=== PATIENT | female | born 1940 | race Caucasian/White ===

== ENCOUNTER 2020-04-04 07:38 | Outpatient (REF) | payer MEDICARE, SELFPAY ==
[2020-04-04 11:31] LABS: Hematocrit 39.6 % (37-47); Hemoglobin 12.9 g/dl (12.0-16.0); Mean Corpuscular HGB Conc 32.6 g/dl (31.0-35.0); Mean Corpuscular Hemoglobin 29.7 pg (27.0-33.0); Mean Corpuscular Volume 91.2 fL (80-98); Mean Platelet Volume 10.9 fL (9.4-12.3); Platelet Count 279 X10*3/uL (160-400); Red Blood Count 4.34 X10*6/uL (4.20-5.50); White Blood Count 6.2 X10*3/uL (4.8-10.8)
[2020-04-04 12:00] LABS: Alanine Aminotransferase 17 U/L (0-31); Albumin Level 4.3 g/dL (3.5-5.0); Alkaline Phosphatase 79 U/L (39-117); Anion Gap 13 (12-20); Aspartate Amino Transferase 21 U/L (5-31); Bilirubin Total 0.7 mg/dL (0.0-1.0); Blood Urea Nitrogen 18 mg/dL (9-16); Calcium 8.9 mg/dL (8.4-10.2); Carbon Dioxide 26 mmol/L (22-29); Chloride 102 mmol/L (96-108); Cholesterol 187 mg/dL; Estimated Glomerular Filt Rate > 60; Glucose Fasting 79 mg/dL (60-99); HDL Cholesterol 55 mg/dL; LDL Cholesterol Calculated 118 mg/dl; Sodium 137 mmol/L (135-145); Total Protein 6.7 g/dL (6.5-8.0); Triglycerides 72 mg/dL
== END 2020-04-04 07:39 | disposition home or self-care (01) ==
LOC: HO.HMGCLDS 07:38
PROVIDERS: PCP Internal Medicine; Visit Provider Internal Medicine
DX: E78.5 Hyperlipidemia, unspecified (principal); R53.83 Other fatigue
CPT/HCPCS: 36415; 80053; 80061; 85027

== ENCOUNTER 2020-09-20 07:20 | Outpatient (REF) | payer MEDICARE, SELFPAY ==
--- NOTE | ~2020-09-20 | MR_ITS ---
EXAMINATION: MR SHOULDER WITHOUT CONTRAST, RIGHT CLINICAL INFORMATION: Pain in rt shoulder, r/o tear decreased range of motion COMPARISON: None TECHNIQUE: MRI of the shoulder without contrast was performed on a high-field scanner. FINDINGS: ROTATOR CUFF: A full-thickness tear of the supraspinatus and infraspinatus tendons measures 4.5 cm AP, measuring around the humeral head in the sagittal dimension. There is moderate to severe subscapularis tendinosis with undersurface fraying. Ill-defined partial tearing of the undersurface fibers of the subscapularis tendon is possible, though not discretely measurable. The torn margins of the supraspinatus and infraspinatus tendon are retracted medially to the level of the glenoid fossa (4.6 cm). There is moderate supraspinatus and infraspinatus muscle atrophy with grade 2 fatty replacement. Mild grade 1 fatty replacement and atrophy of the teres minor muscle. BICEPS: The biceps tendon is chronically torn at the labral anchor and distally retracted. Fibers within the bicipital groove are likely tethered proximally by attachments to the joint capsule. CORACOACROMIAL ARCH: The undersurface of the acromion is curved with prominent anterolateral subacromial spurring. Moderate acromioclavicular osteoarthritis. Fluid from the glenohumeral joint extending into the subacromial-subdeltoid bursa. LABRUM/CAPSULE: Superior labrum is blunted and degenerated at the site of the biceps tendon avulsion. There is focal fraying of the labrum posterosuperiorly with underlying subchondral marrow edema signal. GLENOHUMERAL JOINT/MARROW: There is chondral thinning at the glenoid posterosuperiorly with irregularity and underlying articular cortex and underlying marrow edema. Mild focal chondral fissuring at the humeral head superomedially. Cortical irregularity at the posterosuperior aspect of the humeral head is noted over an area measuring 1.5 x 0.8 cm and may correspond to a shallow chronic Hill-Sachs deformity or chronic remodeling from posterosuperior (internal) impingement. There is a moderate-sized joint effusion with intra-articular debris. No large loose bodies are identified. MR/MR shoulder RT wo con IMPRESSION: 1. Large complete, full-thickness tears of the supraspinatus and infraspinatus tendons with retraction to the level of the glenoid fossa and moderate muscle atrophy. 2. Severe subscapularis tendinosis with undersurface fraying. 3. Chronic disruption of the biceps tendon and labral anchor within the retraction. 4. Moderate acromioclavicular osteoarthritis and anterior subacromial spurring. 5. Mild glenohumeral osteoarthritis with labral fraying and degeneration posterosuperiorly.
== END 2020-09-20 07:21 | disposition home or self-care (01) ==
LOC: HO.MRI 07:20
PROVIDERS: Visit Provider Internal Medicine
DX: M25.511 Pain in right shoulder (principal)
CPT/HCPCS: 73221

== ENCOUNTER → 2020-09-27 10:58 | Outpatient (BNVA) | payer MEDICARE, SELFPAY | PROVIDERS: PCP Internal Medicine; Visit Provider Orthopaedic Surgery | DX: M17.11 Unilateral primary osteoarthritis, right knee (principal); M12.811 Other specific arthropathies, not elsewhere classified, right shoulder | CPT/HCPCS: 99212 ==

== ENCOUNTER → 2020-12-13 10:08 | Outpatient (BNVA) | payer MEDICARE, SELFPAY | PROVIDERS: Visit Provider Orthopaedic Surgery | DX: Z01.812 Encounter for preprocedural laboratory examination (principal); M17.11 Unilateral primary osteoarthritis, right knee; Z01.810 Encounter for preprocedural cardiovascular examination ==

== ENCOUNTER 2020-12-24 14:05 | Outpatient (RCR) | payer MEDICARE, SELFPAY ==
--- NOTE | 2020-12-24 14:56 | MHC.PT.EP ---
[facility] [place] Office [place] Office [place] Office [address] [phone] F: [phone] F: [phone] F: [phone] F: [phone] Physical Therapy Plan of Care Date of Evaluation: Date of Surgery: N/A Diagnosis: Pre op for R knee OA - TKA on 01/15 Assessment: Patient is a 80 year old R handed female who presents with s/s consistent with OA pre-op for R TKA. 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 Patient past medical history includes post-polio syndrome, OA, fracture R patella, hip replacement. Current impairments include pain, ROM, strength, safety, independence, activity tolerance and functional mobility. Functional limitations include decreased ability to walk, stand, transfer, negotiate stairs, and perform weight bearing activities.. Patient is motivated with good rehab potential. Skilled PT will involved issuing HEP for pre-op performance then d/c to HEP. Frequency and Duration: The patient will be seen d/c to HEP Short Term Goals: I with HEP - 1 visit Snf Goals: n/a Treatment Plan: Modalities to reduce pain, spasms and effusion. Manual therapy to restore motion and function. Therapeutic exercise to improve strength and flexibility. Neuromuscular re-education for posture and balance. Therapeutic activities to return to functional activities of daily living. Electronically signed by: Onesimo Garcia, PT Please sign and return to therapist. Thank you for your referral.
--- NOTE | 2021-03-20 09:48 | MHC.PT.DC ---
[facility] [place] Office [place] Office [place] Office [address] Dougie Rowe 140 [facility] [phone] F: [phone] F: [phone] F: [phone] F: [phone] Physical Therapy Discharge Report Diagnosis: Pre op for R knee OA - TKA on 01/15 Date of Surgery: N/A Date of Evaluation: 12/24/20 Date of Discharge: 12/24/20 Treatments to Date: 1 Cancellations to Date: 0 No Shows to Date: Discharge Status: Independent with HEP Discharge Summary: Patient is a 80 year old R handed female who presents with s/s consistent with OA pre-op for R TKA. 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 Patient past medical history includes post-polio syndrome, OA, fracture R patella, hip replacement. Current impairments include pain, ROM, strength, safety, independence, activity tolerance and functional mobility. Functional limitations include decreased ability to walk, stand, transfer, negotiate stairs, and perform weight bearing activities.. Patient is motivated with good rehab potential. Skilled PT will involved issuing HEP for pre-op performance then d/c to HEP. Electronically signed by: Onesimo Garcia, PT Please sign and return to therapist. Thank you for your referral.
== END 2021-10-02 09:46 | disposition home or self-care (01) ==
LOC: HO.PTCHIC 14:05
PROVIDERS: PCP Internal Medicine; Visit Provider Orthopaedic Surgery
DX: M17.11 Unilateral primary osteoarthritis, right knee (principal)
CPT/HCPCS: 97110; 97162

== ENCOUNTER → 2021-01-10 10:46 | Outpatient (BNVA) | payer MEDICARE, SELFPAY | PROVIDERS: PCP Internal Medicine; Visit Provider Physician Assistant | DX: M17.11 Unilateral primary osteoarthritis, right knee (principal) | CPT/HCPCS: 99212 ==

== ENCOUNTER 2021-01-15 09:15 | Inpatient (IN) | payer MEDICARE, SELFPAY ==
[2021-01-01 11:58] VITALS: BP 133/67; PULSE 58; RESP 16; O2SAT 100; BMI 20.7
--- NOTE | 2021-01-01 12:30 | HO.ANESPROP2 ---
Documented by User: Carina Barkley NP 01/14/21 08:34 HPI - Anesthesia Eval Consult details Narrative: 80yo F for Right Total Knee Replacement Low Na with preop labs. Repeat DOS. PCP [facility] Past Medical History Medical History ADHD Arthritis Carpal tunnel syndrome of left wrist GERD (gastroesophageal reflux disease) HTN (hypertension) Low back pain Melanoma Rotator cuff tear Family History Family history of problems with anesthesia: No Surgical History Surgical History History of appendectomy History of carpal tunnel release History of total left hip replacement History of Problems with Anesthesia: No Social History Social History Are you a primary urgent care nurse practitioner to a significant other at home: No Do you presently have visiting nurse or other home services: No Patient Tobacco Use Status: Never used Tobacco Use of substances other than those prescribed or required for medical reasons: No Have you been hit, kicked, punched, or otherwise hurt by someone within the past year? If so, by whom?: No Are you DNR?: No Advance Directives: No Advance Directives Information Provided: No Advance Directives on File: No Recently lost weight without trying: No Narrative Narrative: No recent illness. No CP/SOB with regular activity Meds Allergies Allergy/AdvReac Type Severity Reaction Status Date / Time Sulfa (Sulfonamide AdvReac Nausea and Verified 01/15/21 08:50 Antibiotics) Vomiting Home Medications Medication Instructions Recorded Confirmed Last Taken Type lisinopril 10 1 tab PO DAILY 01/01/21 01/01/21 01/15/21 05:30 History mg-hydrochlorothiazide 12.5 mg tablet methylphenidate HCl 10 mg tablet 5 mg PO DAILY 01/01/21 01/01/21 Unknown History omeprazole 20 mg capsule,delayed 20 mg PO DAILY 01/01/21 01/01/21 Unknown History release Exam Exam Date and Time: January 01, 2021 1230 Height,Weight and Vital Signs: Height 4 ft 11 in Weight 46.7 kg Last Vital Signs Pulse 58 01/01/21 11:58 Resp 16 01/01/21 11:58 BP 133/67 01/01/21 11:58 Pulse Ox 100 01/01/21 11:58 Pertinent Lab Results Pertinent Lab Results: Lab Results 01/01/21 01/01/21 01/01/21 Range/Units 12:30 13:25 13:25 WBC 8.8 (4.8-10.8) X10*3/uL RBC 4.19 L (4.20-5.50) X10*6/uL Hgb 12.5 (12.0-16.0) g/dl Hct 37.9 (37-47) % MCV 90.5 (80-98) fL MCH 29.8 (27.0-33.0) pg MCHC 33.0 (31.0-35.0) g/dl RDW 13.4 (11.0-16.0) % Plt Count 248 (160-400) X10*3/uL MPV 10.4 (9.4-12.3) fL Immature Gran % (Auto) 0.3 (0.0-0.4) % Neut % (Auto) 67.2 (45-73) % Lymph % (Auto) 18.8 L (20-40) % Boone % (Auto) 11.2 H (2-11) % Eos % (Auto) 2.0 (0-4) % Baso % (Auto) 0.5 (0-2) % Lymph # (Auto) 1.7 (1.2-4.9) X10*3/uL Boone # (Auto) 1.0 (0.1-1.2) X10*3/uL Eos # (Auto) 0.2 (0.0-0.4) X10*3/uL Baso # (Auto) 0.0 (0.0-0.2) X10*3/uL Abs Immat Gran (auto) 0.03 (0.00-0.03) X10*3/uL Absolute Neuts (auto) 5.9 (2.0-8.3) X10*3/uL Absolute Nucleated RBC 0.000 (0.0-0.012) X10*3/uL Nucleated RBC % (auto) 0.0 (0.0-0.2) /100WBC Sodium 132 L (135-145) mmol/L Potassium 4.4 (3.3-5.1) mmol/L Chloride 100 (96-108) mmol/L Carbon Dioxide 22 (22-29) mmol/L Anion Gap 14 (12-20) BUN 15 (9-16) mg/dL Creatinine (0.5-1.4) mg/dL Estim Creat Clear Calc Estimated GFR Nasal Screen MRSA (PCR) NEGATIVE (Negative) Nasal S. aureus Screen NEGATIVE (Negative) Nasal MRSA/S.aureus Interp SEE NOTE Blood Type Antibody Screen 01/01/21 01/01/21 Range/Units 13:25 13:25 WBC (4.8-10.8) X10*3/uL RBC (4.20-5.50) X10*6/uL Hgb (12.0-16.0) g/dl Hct (37-47) % MCV (80-98) fL MCH (27.0-33.0) pg MCHC (31.0-35.0) g/dl RDW (11.0-16.0) % Plt Count (160-400) X10*3/uL MPV (9.4-12.3) fL Immature Gran % (Auto) (0.0-0.4) % Neut % (Auto) (45-73) % Lymph % (Auto) (20-40) % Boone % (Auto) (2-11) % Eos % (Auto) (0-4) % Baso % (Auto) (0-2) % Lymph # (Auto) (1.2-4.9) X10*3/uL Boone # (Auto) (0.1-1.2) X10*3/uL Eos # (Auto) (0.0-0.4) X10*3/uL Baso # (Auto) (0.0-0.2) X10*3/uL Abs Immat Gran (auto) (0.00-0.03) X10*3/uL Absolute Neuts (auto) (2.0-8.3) X10*3/uL Absolute Nucleated RBC (0.0-0.012) X10*3/uL Nucleated RBC % (auto) (0.0-0.2) /100WBC Sodium (135-145) mmol/L Potassium (3.3-5.1) mmol/L Chloride (96-108) mmol/L Carbon Dioxide (22-29) mmol/L Anion Gap (12-20) BUN (9-16) mg/dL Creatinine 0.67 (0.5-1.4) mg/dL Estim Creat Clear Calc 46.4 Estimated GFR > 60 Nasal Screen MRSA (PCR) (Negative) Nasal S. aureus Screen (Negative) Nasal MRSA/S.aureus Interp Blood Type A Negative Antibody Screen NEGATIVE Narrative Narrative: EKG 01/01/21 Vent. Rate : 059 BPM ? ? Atrial Rate : 059 BPM ?? P-R Int : 160 ms? QRS Dur : 086 ms ? ? QT Int : 418 ms ? ? ? P-R-T Axes : 040 -16 057 degrees ?? QTc Int : 413 ms ? Sinus bradycardia Nonspecific ST abnormality Abnormal ECG When compared with ECG of 19-SEP-2001 18:53, Vent. rate has decreased BY? 30 BPM Nonspecific T wave abnormality no longer evident in Anterolateral leads Airway Mallampati Class: II TM Dist: >3cm Neck ROM: Full Denture: Upper and Lower Heart: RRR Lungs: CTAB Assessment and Plan Assessment Anesthesia Assessment: Anesthesia Plan Discussed and PAT Visit Final Anesthetic Review Family History of Problems with Anesthesia: No History of Problems with Anesthesia: No Documented by User: Amee Robb MD 01/15/21 09:35 [facility] Past Medical History Medical History ADHD Arthritis Carpal tunnel syndrome of left wrist GERD (gastroesophageal reflux disease) HTN (hypertension) Low back pain Melanoma Rotator cuff tear Surgical History Surgical History History of appendectomy History of carpal tunnel release History of total left hip replacement Social History Social History Are you a primary urgent care nurse practitioner to a significant other at home: No Do you presently have visiting nurse or other home services: No Patient Tobacco Use Status: Never used Tobacco Use of substances other than those prescribed or required for medical reasons: No Have you been hit, kicked, punched, or otherwise hurt by someone within the past year? If so, by whom?: No Are you DNR?: No Advance Directives: No Advance Directives Information Provided: No Advance Directives on File: No Recently lost weight without trying: No Meds Allergies Allergy/AdvReac Type Severity Reaction Status Date / Time Sulfa (Sulfonamide AdvReac Nausea and Verified 01/15/21 08:50 Antibiotics) Vomiting Home Medications Medication Instructions Recorded Confirmed Last Taken Type lisinopril 10 1 tab PO DAILY 01/01/21 01/01/21 01/15/21 05:30 History mg-hydrochlorothiazide 12.5 mg tablet methylphenidate HCl 10 mg tablet 5 mg PO DAILY 01/01/21 01/01/21 Unknown History omeprazole 20 mg capsule,delayed 20 mg PO DAILY 01/01/21 01/01/21 Unknown History release Assessment and Plan Assessment Anesthesia Assessment: Chart Reviewed Final Anesthetic Review NPO: Yes ASA Class: II Final Preanesthetic Review: No Changes in Pt Med Stat, Meds/Allgs Chart Reviewed, Consent Obtained/Reviewed and Anes Risks/Benef Reviewed Patient Risk: Low Procedure Risk: Intermediate Assessment/Block/Sedation in : Assess/Block/Sedation- Anesthetic Plan Anesthetic Plan: Spinal and Regional Block Disposition: Standard PACU
--- NOTE | 2021-01-01 13:18 | ECG_ITS ---
Test Reason : PREOP Blood Pressure : / mmHG Vent. Rate : 059 BPM Atrial Rate : 059 BPM P-R Int : 160 ms QRS Dur : 086 ms QT Int : 418 ms P-R-T Axes : 040 -16 057 degrees QTc Int : 413 ms Sinus bradycardia Nonspecific ST abnormality Abnormal ECG When compared with ECG of 19-SEP-2001 18:53, Vent. rate has decreased BY 30 BPM Nonspecific T wave abnormality no longer evident in Anterolateral leads Referred By: Herman Huynh Electronically Signed By:Felix Bruner
[2021-01-01 14:30] LABS: MANUAL DIFF FLAG NO
[2021-01-01 14:42] LABS: Basophils Percent Auto 0.5 % (0-2); Eosinophils Absolute Auto 0.2 X10*3/uL (0.0-0.4); Hematocrit 37.9 % (37-47); Hemoglobin 12.5 g/dl (12.0-16.0); Imm Gran Abs Auto 0.03 X10*3/uL (0.00-0.03); Imm Gran Pct Auto 0.3 % (0.0-0.4); Lymphocytes Absolute Auto 1.7 X10*3/uL (1.2-4.9); Lymphocytes Percent Auto 18.8 % (20-40); Mean Corpuscular Hemoglobin 29.8 pg (27.0-33.0); Mean Corpuscular Volume 90.5 fL (80-98); Mean Platelet Volume 10.4 fL (9.4-12.3); Monocytes Percent Auto 11.2 % (2-11); Neutrophils Absolute Auto 5.9 X10*3/uL (2.0-8.3); Neutrophils Percent Auto 67.2 % (45-73); Platelet Count 248 X10*3/uL (160-400); Red Blood Count 4.19 X10*6/uL (4.20-5.50); Red Cell Distribution Width 13.4 % (11.0-16.0); White Blood Count 8.8 X10*3/uL (4.8-10.8)
[2021-01-01 15:10] LABS: Creatinine Clr Calc Pharmacy 46.4; Estimated Glomerular Filt Rate > 60
[2021-01-01 15:11] LABS: Anion Gap 14 (12-20); Blood Urea Nitrogen 15 mg/dL (9-16); Carbon Dioxide 22 mmol/L (22-29); Chloride 100 mmol/L (96-108); Potassium 4.4 mmol/L (3.3-5.1); Sodium 132 mmol/L (135-145)
[2021-01-01 15:13] LABS: MRSA Nasal PCR NEGATIVE (Negative); SA Nasal PCR NEGATIVE (Negative)
[2021-01-15] VITALS (14 sets, daily range): BP systolic 115–168; BP diastolic 54–82; PULSE 48–74; RESP 14–18; TEMP 36.3–36.7; O2SAT 97–100
--- NOTE | ~2021-01-15 | XR_ITS ---
EXAMINATION: XR KNEE, RIGHT CLINICAL INFORMATION: Status post right knee total arthroplasty. COMPARISON: None TECHNIQUE: AP and lateral views of the right knee. FINDINGS: Prosthetic components of the right total knee arthroplasty are appropriately aligned. No periprosthetic fracture. Gas from recent surgery is present in the joint and surrounding soft tissues. A joint effusion is present. XR/XR knee RT 2V IMPRESSION: Appropriate alignment of the right total knee arthroplasty.
[2021-01-15 09:31] LABS: Glucose Urine UA NEG (NEG); Leukocyte Esterase Urine 2+ (NEG); Nitrite Urine POS (NEG); Specific Gravity - Urine <= 1.005 (1.005-1.025); Urine Blood TRACE (NEG); Urine Ketones NEG (NEG); Urine Protein NEG (NEG-TRACE)
[2021-01-15 09:33] LABS: Appearance Urine CLEAR; Color Urine YELLOW
[2021-01-15 09:40] LABS: COVID-19 Test Negative (Negative); IDNOW Serial# 9DD0AD1C
[2021-01-15 09:44] LABS: Bacteria Urine 4+ /LPF; RBC Urine 0-2 /HPF (0); Squamous Epithelial Cell Urine 3+ /LPF
[2021-01-15] MEDS: Lactated Ringers 1,000 ML 100 ML IVCONT (10:00)
--- NOTE | 2021-01-15 10:17 | MHC.SHP ---
Pre-Procedural Eval Section A Date of Service: 01/15/21 The patient is an INPATIENT: No Changes since office visit: Yes Patient answered all questions; No Cold of Flu in the past 2 weeks, No New Medical Problems and No Changes in Medication The History & Physical has been completed within 30 days and I have reviewed it.: Yes Section B Chief Complaint: Right total knee arthroplasty Allergies: Allergies Allergy/AdvReac Type Severity Reaction Status Date / Time Sulfa (Sulfonamide AdvReac Nausea and Verified 01/15/21 08:50 Antibiotics) Vomiting Plan I have reviewed the history and physical and performed a pertinent physical examination on my patient. No changes have occurred unless specified.
[2021-01-15 10:29] LABS: Anion Gap 15 (12-20); Carbon Dioxide 21 mmol/L (22-29); Chloride 108 mmol/L (96-108); Potassium 4.5 mmol/L (3.3-5.1); Sodium 139 mmol/L (135-145)
--- NOTE | 2021-01-15 10:31 | PC.NURSE ---
Dr Huynh informed of lab work. Dr Huynh spoke with pt she is asymptomatic. no intervention at this time. pt will be receving cefazolin in OR for the surgery.
--- NOTE | 2021-01-15 12:42 | PM.OP ---
Brief Operative Note Date of Service: 01/15/21 Pre-op diagnosis: right knee OA Post-op diagnosis: same Procedure: right TKA Implants: Mitch triatahlon 3C2/29a/10PS cemented Surgeon: Herman Huynh MD Anesthesia: GETA and regional Was an Coordinator Integrated Marketing used for this Procedure?: Yes Coordinator Integrated Marketing: Andrew Boyd Estimated blood loss (mL): 200 IV fluids (mL): 1,000 Pathology: other (bone) Condition: stable Disposition: PACU
--- NOTE | 2021-01-15 12:46 | W.PM.OPN ---
Operative Note Operative Note Date of Service: 01/15/21 Narrative: Pre-op diagnosis: right knee OA Post-op diagnosis: same Procedure: right TKA Implants: Hubertus triatahlon 3C2/29a/10PS cemented Surgeon: Herman Huynh MD Anesthesia: GETA and regional Was an Mechanical Supervisor used for this Procedure?: Yes Mechanical Supervisor: Andrew Boyd Estimated blood loss (mL): 200 IV fluids (mL): 1,000 Pathology: other (bone) Condition: stable Disposition: PACU Procedure in detail: Patient was brought to the operating room and prepped and draped in standard sterile fashion. A time-out was called to identify proper site proper procedure proper surgeon IV antibiotics were administered. 1 g of IV tranexamic acid was also administered. I began by making a midline incision to the retinaculum and performed a medial parapatellar arthrotomy. The patella was translated laterally and the knee was flexed up. There was complete eburnation of the femur and the lateral tibial compartment. I performed a small medial peel and resected the infrapatellar fat pad. Alexander's line was then used to drill my intramedullary femoral guide and my distal femur cut was made in 5 degrees of valgus. I then measured a # _3__ femur and placed my cutting guide and made my anterior posterior and chamfer cuts protecting the soft tissues at all times. Her bone quality was poor and the decision was made to place a PS knee and so a box cut was made tyhe the PCL sacrificed. Once I was satisfied with my cut I turned my attention to the tibia. I removed the meniscus and , using an external cutting guide, in line with the tibial crest and the third ray, I made my distal tibial cut ( 0 deg slope) while protecting the posterior soft tissues at all times. An extension block was used to confirm appropriate amount of bony resection. I then sized a #_2__ tibia and once I was satisfied that there was good tibial coverage I placed my trial and with the trial femur in place took the knee through range of motion. I was satisfied with the extension and flexion as well as the stability at 0, 30 and 90 degrees. I then turned my attention to the patella where I removed 1 cm from the undersurface of the patella and then trialed a ___29a___ patellar button. Again the knee was taken through range of motion I was satisdied with the tracking. I then returned to the femur and drilled my femoral lug holes and prepared the tibia. Femoral bone plug was then placed and the knee was irrigated copiously. I then cemented the patella, tibia and femur in standard fashion. I trialed different inserts until I selected a #__10__ insert. The final insert was placed and a 3 minutes iodine soak with local TXA was performed. The knee was then closed with a running Quill suture, a 3 0 Vicryl and toro on the skin. Patient was then placed in sterile dressing and brought to recovery room in stable condition there were no known complications.
[2021-01-15] MEDS: Dextrose 5 % and 0.45 % NaCl 1,000 ML 80 ML IVCONT (15:12)
[2021-01-15] MEDS: Docusate Sodium 100 MG CAPSULE PO (20:13)
[2021-01-15] MEDS: oxyCODONE HCl ER 10 MG TAB.ER.12H PO (20:13)
[2021-01-15] MEDS: Celecoxib 200 MG CAPSULE PO (20:13)
[2021-01-16] VITALS (9 sets, daily range): BP systolic 115–155; BP diastolic 63–82; PULSE 68–100; RESP 14–20; TEMP 36.4–37.2; O2SAT 96–100
[2021-01-16] MEDS: Dextrose 5 % and 0.45 % NaCl 1,000 ML 80 ML IVCONT ×2 (03:08→15:53)
[2021-01-16] MEDS: oxyCODONE HCl Immed Release 5 MG TABLET PO ×2 (07:56→15:52)
--- NOTE | 2021-01-16 08:02 | PM.PNORT ---
Subjective Subjective Date of Service: 01/16/21 Interval history: POD1 s/p RTKA. Patient is resting comfortably in bed. No overnight events. Pain is well managed. Physical Exam Vital Signs: Vital Signs: Last Vital Signs Temp 97.6 F 01/16/21 07:58 Pulse 78 01/16/21 07:58 Resp 17 01/16/21 07:58 BP 147/82 H 01/16/21 07:58 Pulse Ox 100 01/16/21 07:58 Body Mass Index 20.7 Const: General: cooperative, healthy appearing and no acute distress Resp: Effort & Inspection: normal respiratory effort and able to speak in complete sentences Cardio: Rate: regular rate Peripheral pulses: Peripheral pulses 2+ throughout GI: Palpation (GI): Soft to palpation Skin: Lesions: no lesions Rashes: no rashes Extrem: Other: Left knee no ecchymosis, redness or drainage. Aquacel dressing is intact. Block is still in effect. Procedures Date of Service Date of Service: 01/16/21 Progress Note: A&P Assessment and plan (1) S/P total knee arthroplasty: Status: Acute Assessment and Plan: Continue pain mgmnt Begin SAS for dvt ppx Continue PT for RT TKA Dispo planning-Pending PT eval, pain mgmnt (2) Osteoarthritis of right knee: Status: Acute Fall Risk Details Current Medications: Current Medications Generic Name Dose Route Start Last Admin Trade Name Freq PRN Reason Stop Dose Admin Acetaminophen 650 mg 01/15/21 13:48 Acetaminophen 325 Mg Tablet PO Q6H PRN Pain, Mild (Pain Scale 1-3) Aspirin 325 mg 01/16/21 11:00 Aspirin 325 Mg Tablet PO BID CARO Celecoxib 200 mg 01/15/21 21:00 01/15/21 20:13 Celecoxib 200 Mg Capsule PO 200 mg BID CARO Administration Docusate Sodium 100 mg 01/15/21 21:00 01/15/21 20:13 Docusate Sodium 100 Mg Capsule PO 100 mg BID CARO Administration Hydromorphone HCl 0.25 mg 01/15/21 13:48 Hydromorphone Hcl 0.5 Mg/0.5 Ml Syringe IVPUSH Q4H PRN Pain, Severe (Pain Scale 7-10) Protocol Dextrose/Sodium Chloride 1,000 mls @ 80 mls/hr 01/15/21 13:48 01/16/21 03:08 D51/2ns IVCONT 80 mls/hr .[id number] CARO Administration Naloxone HCl 0.2 mg 01/15/21 13:48 Naloxone Hcl 0.4 Mg/Ml Vial IVPUSH Q2M PRN Excessive sedation or RR < 8 Ondansetron HCl 4 mg 01/15/21 13:48 Ondansetron Hcl 4 Mg/2 Ml Vial IVPUSH Q8H PRN Nausea and Vomiting Oxycodone HCl 5 mg 01/15/21 13:48 01/16/21 07:56 Oxycodone Hcl Immed Release 5 Mg Tablet PO 5 mg Q4H PRN Administration Pain, Moderate (Pain Scale 4-6 Oxycodone HCl 10 mg 01/15/21 21:00 01/15/21 20:13 Oxycodone Hcl Er 10 Mg Tab.Er.12h PO 10 mg BID CARO Administration Sodium Chloride 3 ml 01/15/21 16:00 01/16/21 07:03 0.9 % Sodium Chloride Flush 3 Ml Syringe IVFLUSH Not Given QSHIFT CARO Time Spent With Patient Time: Total time spent is greater than 50% in coordination of care (as documented) at patient's floor/unit and/or counseling patient: Time with patient: less than 15 minutes Quality Stroke Does the patient have a stroke diagnosis?: No VTE Prior VTE?: No VTE Risk Level:: Surgical - very high VTE Device Contraindication: N/A - Device Ordered VTE Drug Contraindication: N/A - Med Ordered
[2021-01-16 08:21] LABS: Anion Gap 12 (12-20); Blood Urea Nitrogen 12 mg/dL (9-16); Calcium 8.6 mg/dL (8.4-10.2); Carbon Dioxide 22 mmol/L (22-29); Chloride 106 mmol/L (96-108); Estimated Glomerular Filt Rate > 60; Glucose Fasting 117 mg/dL (60-99); Potassium 4.1 mmol/L (3.3-5.1); Sodium 136 mmol/L (135-145)
[2021-01-16] MEDS: Celecoxib 200 MG CAPSULE PO ×2 (08:46→20:32)
[2021-01-16] MEDS: oxyCODONE HCl ER 10 MG TAB.ER.12H PO ×2 (08:46→20:32)
[2021-01-16] MEDS: Docusate Sodium 100 MG CAPSULE PO ×2 (08:46→20:32)
--- NOTE | 2021-01-16 09:12 | PM.IMCN ---
History of Present Illness Data of Consult Service Date: 01/16/21 Requesting physician: Herman Huynh Primary Care Provider: Nehemiah Whyte MD HPI 80 year old female with HTN, ADHD, GERD who underwent elective right knee arthroplasty, POD 1. H as no acute issues, doing well with mobility. Pain is reasobably controlled. Review of Systems Review of Systems: Gen: no fever Resp: no sob, no cough CV: no chest, no LUU, no leg edema GI: No n/v, no abd pain Neuro: No confusion MSK: some pain in the right knee Yes all other systems are reviewed and are negative FOR[facility]LY [facility] Medical History (Updated 01/16/21 @ 09:22 by Maurice Butler MD) ADHD Arthritis Carpal tunnel syndrome of left wrist GERD (gastroesophageal reflux disease) HTN (hypertension) Low back pain Melanoma Rotator cuff tear Pertinent family history: not pertinent Surgical History (Updated 01/16/21 @ 08:04 by Isabelle Jules PA-C) History of appendectomy History of carpal tunnel release History of total left hip replacement Social History Are you a primary hearing care practitioner to a significant other at home: No Do you presently have visiting nurse or other home services: No Patient Tobacco Use Status: Never used Tobacco Use of substances other than those prescribed or required for medical reasons: No Currently Displaying Signs/Symptoms of Drug Intoxication Withdrawal: No Have you been hit, kicked, punched, or otherwise hurt by someone within the past year? If so, by whom?: No Are you DNR?: No Advance Directives: No Advance Directives Information Provided: No Advance Directives on File: No Do you have thoughts of harming others: None Do you have a plan to hurt others: No Plan Recently lost weight without trying: No service: No Current occupational status: retired Meds Allergies Allergy/AdvReac Type Severity Reaction Status Date / Time Sulfa (Sulfonamide AdvReac Nausea and Verified 01/15/21 08:50 Antibiotics) Vomiting Active Medications: Current Medications Generic Name Dose Route Start Last Admin Trade Name Freq PRN Reason Stop Dose Admin Acetaminophen 650 mg 01/15/21 13:48 Acetaminophen 325 Mg Tablet PO Q6H PRN Pain, Mild (Pain Scale 1-3) Aspirin 325 mg 01/16/21 11:00 Aspirin 325 Mg Tablet PO BID CARO Celecoxib 200 mg 01/15/21 21:00 01/16/21 08:46 Celecoxib 200 Mg Capsule PO 200 mg BID CARO Administration Docusate Sodium 100 mg 01/15/21 21:00 01/16/21 08:46 Docusate Sodium 100 Mg Capsule PO 100 mg BID CARO Administration Hydromorphone HCl 0.25 mg 01/15/21 13:48 Hydromorphone Hcl 0.5 Mg/0.5 Ml Syringe IVPUSH Q4H PRN Pain, Severe (Pain Scale 7-10) Protocol Dextrose/Sodium Chloride 1,000 mls @ 80 mls/hr 01/15/21 13:48 01/16/21 03:08 D51/2ns IVCONT 80 mls/hr .[id number] CARO Administration Naloxone HCl 0.2 mg 01/15/21 13:48 Naloxone Hcl 0.4 Mg/Ml Vial IVPUSH Q2M PRN Excessive sedation or RR < 8 Ondansetron HCl 4 mg 01/15/21 13:48 Ondansetron Hcl 4 Mg/2 Ml Vial IVPUSH Q8H PRN Nausea and Vomiting Oxycodone HCl 5 mg 01/15/21 13:48 01/16/21 07:56 Oxycodone Hcl Immed Release 5 Mg Tablet PO 5 mg Q4H PRN Administration Pain, Moderate (Pain Scale 4-6 Oxycodone HCl 10 mg 01/15/21 21:00 01/16/21 08:46 Oxycodone Hcl Er 10 Mg Tab.Er.12h PO [address] [facility] Administration Sodium Chloride 3 ml 01/15/21 16:00 01/16/21 07:03 0.9 % Sodium Chloride Flush 3 Ml Syringe IVFLUSH Not Given QSHIFT [facility] Home Medications Medication Instructions Recorded Confirmed Last Taken Type lisinopril 10 1 tab PO DAILY 01/01/21 01/01/21 01/15/21 05:30 History mg-hydrochlorothiazide 12.5 mg tablet methylphenidate HCl 10 mg tablet 5 mg PO DAILY 01/01/21 01/01/21 Unknown History omeprazole 20 mg capsule,delayed 20 mg PO DAILY 01/01/21 01/01/21 Unknown History release Physical Exam Vital Signs and Narrative: Vital Signs: Last Vital Signs Temp 97.6 F 08/18/21 07:58 Pulse 78 01/16/21 08:46 Resp 17 01/16/21 07:58 BP 147/82 H 01/16/21 08:46 Pulse Ox 100 01/16/21 08:46 Body Mass Index 20.7 Constitutional Awake and Alert, No apparent distress HEEENT anicteric Neck Supple, No lymphadenopathy Cardiovascular RRR, No M/R/G, S1 S2, No S3 S4, No pedal edema Respiratory Lungs clear, No respiratory distress Gastrointestinal Non tender, Non-distended Skin No rash, right knee surgery dressing in place Neurological Alert & oriented x3 Psychological Appropriate affect Results Labs CBC and Chem 7: 01/16/21 06:35 01/16/21 06:35 Labs: Laboratory Results - last 24 hr 01/15/21 01/15/21 01/15/21 09:07 09:14 09:58 MCV MCH MCHC RDW Plt Count MPV Immature Gran % (Auto) Neut % (Auto) Lymph % (Auto) [place] % (Auto) Eos % (Auto) Baso % (Auto) Lymph # (Auto) [place] # (Auto) Eos # (Auto) Baso # (Auto) Abs Immat Gran (auto) Absolute Neuts (auto) Absolute Nucleated RBC Nucleated RBC % (auto) Smear Tech's Comments Anion Gap 15 Estim Creat Clear Calc Estimated GFR Fasting Glucose Calcium Urine Color YELLOW Urine Appearance CLEAR Urine pH 7.0 Ur Specific [place] <= 1.005 Urine Protein NEG Urine Glucose (UA) NEG Urine Ketones NEG Urine Blood TRACE Urine Nitrite POS H Ur Leukocyte Esterase 2+ H Urine RBC 0-2 Urine WBC 5-9 H Ur Squamous Epith Cells 3+ Urine Bacteria 4+ COVID-19 (TAMI) Negative COVID-19 Clin Com See Note 01/16/21 01/16/21 06:35 06:35 MCV 90.7 MCH 30.1 MCHC 33.1 RDW 13.8 Plt Count 236 MPV 10.8 Immature Gran % (Auto) 0.6 H Neut % (Auto) 73.0 Lymph % (Auto) 11.5 L [place] % (Auto) 14.6 H Eos % (Auto) 0.1 Baso % (Auto) 0.2 Lymph # (Auto) 1.5 [place] # (Auto) 1.8 H Eos # (Auto) 0.0 Baso # (Auto) 0.0 Abs Immat Gran (auto) 0.07 H Absolute Neuts (auto) 9.2 H Absolute Nucleated RBC 0.000 Nucleated RBC % (auto) 0.0 Smear Tech's Comments VERIFIED Anion Gap 12 Estim Creat Clear Calc 51.0 Estimated GFR > 60 Fasting Glucose 117 H D Calcium 8.6 Urine Color Urine Appearance Urine pH Ur Specific [place] Urine Protein Urine Glucose (UA) Urine Ketones Urine Blood Urine Nitrite Ur Leukocyte Esterase Urine RBC Urine WBC Ur Squamous Epith Cells Urine Bacteria COVID-19 (TAMI) COVID-19 Clin Com Imaging Radiologist's Impressions: Impressions Knee X-Ray 01/15/21 13:11 IMPRESSION: Appropriate alignment of the right total knee arthroplasty. Assessment and Plan (1) ADHD: Status: Acute (2) HTN (hypertension): Status: Acute (3) GERD (gastroesophageal reflux disease): Status: Acute (4) S/P total knee arthroplasty: Status: Acute (5) Osteoarthritis of right knee: Status: Acute 80/F with HTN, GERD, ADH s/p ritht TKR, doing wel 1/HTN--Continue HCTZ/Lisinopril 2/GERD--continue Prilosec 3/ADHD--Ritalin 4/s/p R TKR, management per ortho, including apropriately 5/slight leukocytosis--likely reactive, monitor 6/Slight anemia--monitor Sing off, please contact with new problems, or concerns. Thanks
--- NOTE | 2021-01-16 09:18 | MHC.CM.PN ---
pt lives in her home. she has a roomate also described as a tenant. 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 she is independent in her care . prior to surgery she did not use any AD c ambulation despite her bad knee. she does however have a walker at home. she says that her roomate can help her c any needs she may have. this will include a ride home at [place]. PT john recomends home pt via vna and pt requested [facility] for this, a ref. has been made to [facility]. dc plan is home c vna for home PT. cm to cont. to follow.
[2021-01-16] MEDS: Aspirin 325 MG TABLET PO ×2 (10:05→20:32)
--- NOTE | 2021-01-16 14:57 | HO.POSTANES ---
Post Anesthesia Evaluation Post Anesthesia Evaluation Vital Signs: Vital Signs Temp Pulse Resp BP Pulse Ox 01/16/21 13:36 75 148/78 H 99 01/16/21 11:34 97.9 F 75 18 148/78 H 99 01/16/21 08:46 78 147/82 H 100 01/16/21 07:58 97.6 F 78 17 147/82 H 100 01/16/21 07:20 98.6 F 70 20 115/64 99 01/16/21 03:24 97.5 F 68 14 131/79 97 Anesthesia: Spinal and Nerve Block Mental Status: Awake Pain Control: Satisfactory Nausea/Vomiting: None Hydration: Adequate Anesthesia-Related Issues: No Anes. Related Issues
[2021-01-17 03:48] VITALS: BP 141/77; PULSE 76; RESP 16; TEMP 36.7; O2SAT 100
[2021-01-17] MEDS: Dextrose 5 % and 0.45 % NaCl 1,000 ML 80 ML IVCONT (05:44)
[2021-01-17 07:14] LABS: Basophils Percent Auto 0.3 % (0-2); Eosinophils Absolute Auto 0.1 X10*3/uL (0.0-0.4); Eosinophils Percent Auto 0.9 % (0-4); Hematocrit 31.7 % (37-47); Hemoglobin 10.8 g/dl (12.0-16.0); Imm Gran Abs Auto 0.08 X10*3/uL (0.00-0.03); Imm Gran Pct Auto 0.7 % (0.0-0.4); Lymphocytes Absolute Auto 1.3 X10*3/uL (1.2-4.9); Lymphocytes Percent Auto 11.2 % (20-40); MANUAL DIFF FLAG SCAN; Mean Corpuscular HGB Conc 34.1 g/dl (31.0-35.0); Mean Corpuscular Hemoglobin 30.6 pg (27.0-33.0); Mean Corpuscular Volume 89.8 fL (80-98); Mean Platelet Volume 10.5 fL (9.4-12.3); Monocytes Absolute Auto 2.5 X10*3/uL (0.1-1.2); Monocytes Percent Auto 21.8 % (2-11); Neutrophils Absolute Auto 7.6 X10*3/uL (2.0-8.3); Neutrophils Percent Auto 65.1 % (45-73); Platelet Count 232 X10*3/uL (160-400); Red Blood Count 3.53 X10*6/uL (4.20-5.50); Red Cell Distribution Width 14.1 % (11.0-16.0); SCAN SMEAR FLAG 1; White Blood Count 11.7 X10*3/uL (4.8-10.8)
[2021-01-17 07:31] VITALS: BP 169/77; PULSE 79; RESP 15; TEMP 36.9; O2SAT 99
[2021-01-17] MEDS: oxyCODONE HCl Immed Release 5 MG TABLET PO (07:42)
[2021-01-17 07:44] LABS: Anion Gap 12 (12-20); Blood Urea Nitrogen 7 mg/dL (9-16); Calcium 8.5 mg/dL (8.4-10.2); Carbon Dioxide 21 mmol/L (22-29); Chloride 107 mmol/L (96-108); Creatinine Clr Calc Pharmacy 53.6; Estimated Glomerular Filt Rate > 60; Glucose Fasting 108 mg/dL (60-99); Potassium 3.9 mmol/L (3.3-5.1); Sodium 136 mmol/L (135-145)
--- NOTE | 2021-01-17 08:11 | P.F2F_ITS ---
Service Date Service Date: 01/17/21 Reasons for Services Reason for physical therapy: home safety and mobility, therapeutic exercises, restore joint function, gait/transfer training and ADL training Reason for occupational therapy: home safety and mobility, therapeutic exercises, restore joint function, gait/transfer training and ADL training Homebound: Leaving the home is medically contraindicated at this time without the asist of a device and/or another person due th the listed conditions above and below. Reason homebound: unsteady gait / fall risk, leg weakness, pain with ambulation, pain with transfers and unable to drive Homebound supporting statement: Pt. is considered homebound due to recent surgery. Unable to drive, poor balance, poor gait mechanics. Certification: Based on the above findings, I certify that this patient is confined to the home and needs intermittent senior living care, physical therapy and/or speech therapy, or continues to need occupational therapy. The patient is under my care, and I have initiated the establishment of the plan of care. The patient will be followed by a physician who will periodically review the plan of care.
[2021-01-17 08:12] LABS: SLIDE REVIEW VERIFIED
[2021-01-17] MEDS: Docusate Sodium 100 MG CAPSULE PO (08:34)
[2021-01-17] MEDS: oxyCODONE HCl ER 10 MG TAB.ER.12H PO (08:34)
[2021-01-17] MEDS: Celecoxib 200 MG CAPSULE PO (08:34)
[2021-01-17] MEDS: Aspirin 325 MG TABLET PO (08:34)
[2021-01-17 08:51] VITALS: BP 169/77; PULSE 79; O2SAT 99
--- NOTE | 2021-01-17 08:53 | P.DS_ITS ---
DS: Providers Provider Date of Service: 01/17/21 Date of admission: 01/15/21 09:15 Primary care physician: Nehemiah Whyte MD Consults: 01/15/21 13:48 Consult to Hospitalist Routine Consulting Provider: Hospitalist Reason For Exam: post op medical management DS: Diagnosis Discharge Diagnosis (1) ADHD: Status: Acute (2) HTN (hypertension): Status: Acute (3) GERD (gastroesophageal reflux disease): Status: Acute (4) S/P total knee arthroplasty: Status: Acute (5) Osteoarthritis of right knee: Status: Acute DS: Medications Discharge Medications Home Medications: Home Medications Medication Instructions Recorded Confirmed lisinopril 10 1 tab PO DAILY 01/01/21 01/01/21 mg-hydrochlorothiazide 12.5 mg tablet methylphenidate HCl 10 mg tablet 5 mg PO DAILY 01/01/21 01/01/21 omeprazole 20 mg capsule,delayed 20 mg PO DAILY 01/01/21 01/01/21 release Previous Rx's Medication Instructions Recorded acetaminophen 325 mg tablet 650 mg PO Q6H PRN 30 Days #240 tab 01/17/21 aspirin 325 mg tablet 325 mg PO BID 44 Days #88 tab 01/17/21 celecoxib 200 mg capsule 200 mg PO BID 30 Days #60 cap 01/17/21 docusate sodium 100 mg capsule 100 mg PO BID 30 Days #60 cap 01/17/21 oxycodone 5 mg tablet 5 mg PO Q4H PRN 7 Days #42 tab 01/17/21 DS: Summary Hospital Course Hospital Course: Ms Yeung is a 80 yo female who presented to the office with ongoing right knee pain. She was found to have OA of the right knee and had failed all conservative treatment. She continued to have difficulty with ambulation and daily activities; therefore she consented to move forward with Right total knee arthroplasty.? The patient underwent a successful right total knee arthroplasty, they were transferred to PACU and then to the floor to recover. During their stay, their vitals were stable, afebrile at 98.5. Labs were unremarkable, H/H 10.8/31.7. POD 1 they were started on Aspirin 325mg po bid for DVT ppx, they also received Physical Therapy services twice a day. Prior to discharge, their dressing was changed, incision clean dry and intact, new Aquacel dressing applied and the plan was to be discharged home with VNA services. Time Spent with Patient Time attestation: Total time spent providing and/or coordinating discharge services: Discharge coordination time: Less than 30 minutes Quality: Stroke Does the patient have a stroke diagnosis?: No Physical Exam Vital Signs: Vital Signs: Last Vital Signs Temp 98.5 F 01/17/21 07:31 Pulse 79 01/17/21 07:31 Resp 15 01/17/21 07:31 BP 169/77 H 01/17/21 07:31 Pulse Ox 99 01/17/21 07:31 Body Mass Index 20.7 Const: General: cooperative, healthy appearing and no acute distress Resp: Effort & Inspection: normal respiratory effort and able to speak in complete sentences Cardio: Rate: regular rate Peripheral pulses: Peripheral pulses 2+ throughout GI: Palpation (GI): Soft to palpation Skin: Lesions: no lesions Rashes: no rashes Extrem: Other: Right knee no ecchymosis, redness, or drainage. [place] intact. New Aquacel dressing applied. NVI. DS: Data Data Completed and Pending Pending studies at discharge: Pending at discharge 01/15/21 12:20 Surgical [PTH] Routine Labs on day of discharge: Laboratory Results - last 24 hr 01/16/21 01/17/21 01/17/21 06:35 06:31 06:31 WBC Cancelled 11.7 H RBC Cancelled 3.53 L Hgb Cancelled 10.8 L Hct Cancelled 31.7 L MCV Cancelled 89.8 MCH Cancelled 30.6 MCHC Cancelled 34.1 RDW Cancelled 14.1 Plt Count Cancelled 232 MPV Cancelled 10.5 Immature Gran % (Auto) Cancelled 0.7 H Neut % (Auto) Cancelled 65.1 Lymph % (Auto) Cancelled 11.2 L [place] % (Auto) Cancelled 21.8 H Eos % (Auto) Cancelled 0.9 Baso % (Auto) Cancelled 0.3 Lymph # (Auto) Cancelled 1.3 [place] # (Auto) Cancelled 2.5 H Eos # (Auto) Cancelled 0.1 Baso # (Auto) Cancelled 0.0 Abs Immat Gran (auto) Cancelled 0.08 H Absolute Neuts (auto) Cancelled 7.6 Absolute Nucleated RBC Cancelled 0.000 Nucleated RBC % (auto) Cancelled 0.0 Smear Tech's Comments Cancelled VERIFIED Sodium 136 Potassium 3.9 Chloride 107 Carbon Dioxide 21 L Anion Gap 12 BUN 7 L Creatinine 0.58 Estim Creat Clear Calc 53.6 Estimated GFR > 60 Fasting Glucose 108 H Calcium 8.5 Discharge Plan Discharge Patient Disposition: Home Health Service Discharge Diagnosis: s/p right total knee arthroplasty Referrals: Madhu RAMOS [Outside] - 1 Week Andrew Boyd PA-C [Physician Tieing Machine Operator] - 1 Week (01/31/21 at 10:15am ) Discharge Medications: New celecoxib 200 mg Capsule 200 mg PO BID 30 Days Qty: 60 RF: 0 acetaminophen 325 mg Tablet 650 mg PO Q6H PRN (Reason: Pain, Mild (Pain Scale 1-3)) 30 Days Qty: 240 RF: 0 aspirin 325 mg Tablet 325 mg PO BID 44 Days Qty: 88 RF: 0 docusate sodium 100 mg Capsule 100 mg PO BID 30 Days Qty: 60 RF: 0 oxycodone 5 mg Tablet 5 mg PO Q4H PRN (Reason: Pain, Moderate (Pain Scale 4-6) 7 Days Qty: 42 RF: 0 Continued omeprazole 20 mg Capsule,Delayed Release(Dr/Ec) 20 mg PO DAILY RF: 0 lisinopril-hydrochlorothiazide 10-12.5 mg Tablet 1 tab PO DAILY RF: 0 methylphenidate HCl 10 mg Tablet 5 mg PO DAILY RF: 0 Discharge Orders: Discharge Order (Routine); Ordered 01/17/21 Ordered By: Isabelle Jules Diet: regular diet Activity on Discharge: Use cane or walker Stand Alone Forms: Patient Portal Discharge page Care Plan Goals: Restore fxn to the right knee Health Concerns: None Plan of Treatment: Physical Therapy for ROM 0-120, quad strength, gait training. Use walker for ambulation Limit stair climbing, No shower, No tub bath, No driving Continue anticoagulant Keep Aquacel dressing clean, dry and intact. Follow up with orthopedics in 2 weeks Assessment: Cleared for D/C
--- NOTE | 2021-01-17 11:15 | PC.NURSE ---
Skin assessment completed today. Patient has a surgical wound to right knee-Aquacell dressing with small blood stain intact. No other open areas noted on patient.
[2021-01-17 11:20] VITALS: BP 140/80; PULSE 90; RESP 17; TEMP 36.3; O2SAT 98
== END 2021-01-17 12:03 | disposition home health service (06) | DRG 470 ==
LOC: HO.SSSA 09:33 → HO.S3 13:29
PROVIDERS: Nurse Practitioner; Physician Assistant; Admitting Provider Orthopaedic Surgery; PCP Internal Medicine; Visit Provider Orthopaedic Surgery
PROC: 0SRC0J9 Replacement of Right Knee Joint with Synthetic Substitute, Cemented, Open Approach (ICD-10-PCS; CPT 27447; principal; 2021-01-15 10:30)
DX: M17.11 Unilateral primary osteoarthritis, right knee (principal); K21.9 Gastro-esophageal reflux disease without esophagitis; I10 Essential (primary) hypertension; F90.9 Attention-deficit hyperactivity disorder, unspecified type; Z20.822 Contact with and (suspected) exposure to COVID-19; Z88.2 Allergy status to sulfonamides; Z79.899 Other long term (current) drug therapy
CPT/HCPCS: 27447; 36415; 73560; 80048; 80051; 81001; 82565; 84520; 85025; 86850; 86900; 86901; 87635; 87640; 87641; 88305; 88311; 93005; 97110; 97116; 97162; C1713; C1776; J0690; J1100; J2250; J3010

== ENCOUNTER → 2021-01-21 11:46 | Outpatient (BNVA) | payer MEDICARE, SELFPAY | PROVIDERS: PCP Internal Medicine; Visit Provider Orthopaedic Surgery ==

== ENCOUNTER → 2021-01-24 10:49 | Outpatient (BNVA) | payer MEDICARE, SELFPAY | PROVIDERS: PCP Internal Medicine; Visit Provider Physician Assistant | DX: M17.11 Unilateral primary osteoarthritis, right knee (principal); I10 Essential (primary) hypertension; Z96.651 Presence of right artificial knee joint; Z96.642 Presence of left artificial hip joint | CPT/HCPCS: 99212 ==

== ENCOUNTER → 2021-01-31 10:16 | Outpatient (BNVA) | payer MEDICARE, SELFPAY | PROVIDERS: Visit Provider Physician Assistant | DX: Z47.1 Aftercare following joint replacement surgery (principal); Z96.659 Presence of unspecified artificial knee joint | CPT/HCPCS: 99212 ==

== ENCOUNTER → 2021-02-28 09:14 | Outpatient (BNVA) | payer MEDICARE, SELFPAY | PROVIDERS: Visit Provider Orthopaedic Surgery | DX: Z47.1 Aftercare following joint replacement surgery (principal); Z96.659 Presence of unspecified artificial knee joint | CPT/HCPCS: 99212 ==

== ENCOUNTER 2021-04-11 08:36 | Outpatient (REF) | payer MEDICARE, SELFPAY ==
--- NOTE | ~2021-04-11 | XR_ITS ---
EXAMINATION: XR KNEES, STANDING AP XR KNEE, RIGHT CLINICAL INFORMATION: Knee pain. COMPARISON: Radiographs right knee 01/15/2021, standing AP knees 02/27/2020. TECHNIQUE: Standing AP view of both knees is performed. Additional lateral and axial patella views of the right knee are also included. FINDINGS: Right: Patient is status post total knee arthroplasty. Hardware is intact. There is no fracture or dislocation or destructive process. There is suprapatellar effusion and mild edema in the anterior soft tissues. No bony destructive process or periostitis. Axial view shows no lateralization of the patella. Left: There is chondrocalcinosis involving the medial and lateral menisci. Mild joint narrowing. No erosive changes. There is mild lateralization of the patella similar to prior exam 2019. XR/XR knee RT 2V IMPRESSION: 1. Right: Status post total knee arthroplasty. Hardware intact. Suprapatellar effusion. No destructive process. 2. Left: Mild joint narrowing. Chondrocalcinosis medial and lateral menisci.
--- NOTE | ~2021-04-11 | XR_ITS ---
EXAMINATION: XR KNEES, STANDING AP XR KNEE, RIGHT CLINICAL INFORMATION: Knee pain. COMPARISON: Radiographs right knee 01/15/2021, standing AP knees 02/27/2020. TECHNIQUE: Standing AP view of both knees is performed. Additional lateral and axial patella views of the right knee are also included. FINDINGS: Right: Patient is status post total knee arthroplasty. Hardware is intact. There is no fracture or dislocation or destructive process. There is suprapatellar effusion and mild edema in the anterior soft tissues. No bony destructive process or periostitis. Axial view shows no lateralization of the patella. Left: There is chondrocalcinosis involving the medial and lateral menisci. Mild joint narrowing. No erosive changes. There is mild lateralization of the patella similar to prior exam 2019. XR/XR knee standing BI IMPRESSION: 1. Right: Status post total knee arthroplasty. Hardware intact. Suprapatellar effusion. No destructive process. 2. Left: Mild joint narrowing. Chondrocalcinosis medial and lateral menisci.
== END 2021-04-11 08:37 | disposition home or self-care (01) ==
LOC: HO.HOSX 08:36
PROVIDERS: Visit Provider Orthopaedic Surgery
DX: M25.561 Pain in right knee (principal); Z96.651 Presence of right artificial knee joint
CPT/HCPCS: 73560; 73565; 99212

== ENCOUNTER 2021-07-03 08:00 | Outpatient (RCR) | payer MEDICARE, SELFPAY ==
--- NOTE | 2021-04-17 09:26 | MHC.PT.EP ---
[facility] [place] Office [place] [facility] [place] Office [address] Dougie Rowe [address] [phone] F: [phone] F: [phone] F: [phone] F: [phone] Physical Therapy Plan of Care Date of Evaluation: Date of Surgery: Diagnosis: R TKA Assessment: 80 y/o female s/p R TKA 01/15/21. She had home PT for 2 weeks. Of note, she reports L RANDAL in 2013 and hx of polio resulting in leg length difference per pt. She was instructed to order an adjustable shoe lift but has not done so yet. Currently she has difficulty with walking > 10min, ascending/descending stairs in step to pattern, and balance. Examination shows decreased R knee AROM 0-12-114, significant LLD (1.5 shorter on L), quad lag with SLR, decreased B hip strength, and impaired gait pattern. Recommend PT 2x/week for 4 weeks to address impairments, implement HEP, and optimize functional mobility. Frequency and Duration: The patient will be seen 2x/week for 4 weeks Short Term Goals: 2 weeks 1. I with HEP 2. Improve knee extension to 5 degrees Rivet Sticker Goals: 4 weeks 1. I with HEP and self management of sx 2. ascend and descend stairs in step through pattern with rail 3. Pt will be able to walk > 30min with pain < 3/10 Treatment Plan: Modalities to reduce pain, spasms and effusion. Manual therapy to restore motion and function. Therapeutic exercise to improve strength and flexibility. Neuromuscular re-education for posture and balance. Therapeutic activities to return to functional activities of daily living. Electronically signed by: Leela Manning PT Please sign and return to therapist. Thank you for your referral.
--- NOTE | 2021-07-11 12:48 | MHC.PT.DC ---
[facility] [place] Office [place] Office [place] Office [address] Rowe [address] [phone] F: [phone] F: [phone] F: [phone] F: [phone] Physical Therapy Discharge Report Diagnosis: R TKA Date of Surgery: 01/15/21 R TKA Date of Evaluation: 04/17/21 Date of Discharge: 07/11/21 Treatments to Date: 16 Cancellations to Date: 5 No Shows to Date: 1 Discharge Status: Improved Function Independent with HEP Discharge Summary: Pt appropriate for d/c secondary to meeting STG and most of LTG. Her knee AROM 0-14-122 wiht lack of extension most likely due to her significant leg length difference from polio as a child. She will continue with I HEP. Electronically signed by: Leela Manning PT Please sign and return to therapist. Thank you for your referral.
== END 2021-07-11 12:48 | disposition home or self-care (01) ==
LOC: HO.PT 08:00
PROVIDERS: PCP Internal Medicine; Visit Provider Orthopaedic Surgery
DX: Z96.651 Presence of right artificial knee joint (principal)
CPT/HCPCS: 97110; 97140; 97162; 97530

== ENCOUNTER → 2022-06-03 13:01 | Outpatient (BNVA) | payer MEDICARE, SELFPAY | PROVIDERS: PCP Internal Medicine; Visit Provider Nurse Practitioner Family | DX: N32.81 Overactive bladder (principal) | CPT/HCPCS: 51798; 99212 ==

== ENCOUNTER → 2022-08-01 13:00 | Outpatient (BNVA) | payer MEDICARE, SELFPAY | PROVIDERS: PCP Internal Medicine; Visit Provider Nurse Practitioner Family | DX: N39.41 Urge incontinence (principal); N32.81 Overactive bladder | CPT/HCPCS: 51798; 99212 ==

== ENCOUNTER 2022-09-01 10:06 | Outpatient (REF) | payer MEDICARE, SELFPAY | END 2022-09-01 10:07 | disposition home or self-care (01) | LOC: HO.HMGCX 10:06 | PROVIDERS: PCP Internal Medicine; Visit Provider Nurse Practitioner Family | DX: Z13.89 Encounter for screening for other disorder (principal) ==

== ENCOUNTER 2022-09-04 11:40 | Outpatient (REF) | payer MEDICARE, SELFPAY ==
--- NOTE | ~2022-09-04 | US_ITS ---
EXAMINATION: US RETROPERITONEAL COMPLETE (RENAL) CLINICAL INFORMATION: Urge incontinence. COMPARISON: None available. TECHNIQUE: Real-time imaging of the kidneys and bladder. FINDINGS: RIGHT KIDNEY: 8.0 x 5.3 x 4.8 cm (SAG x AP x TRV). The kidney is normal in size, contour, and echogenicity. Renal cortical thickness is normal. No renal calculi or hydronephrosis. Small cyst in the midpole measuring 6 x 7 mm. No imaging follow-up recommended. LEFT KIDNEY: 9.3 x 5.1 x 4.6 cm (SAG x AP x TRV). The kidney is normal in size, contour, and echogenicity. Renal cortical thickness is normal. No calculi or focal parenchymal lesions. No hydronephrosis. BLADDER: Well distended and normal. Right ureteral jet is demonstrated; left is not. Prevoid bladder volume is 382 mL. There is no postvoid residual. US/US retroperitoneal comp IMPRESSION: Unremarkable exam.
== END 2022-09-04 11:41 | disposition home or self-care (01) ==
LOC: HO.HMGCX 11:40
PROVIDERS: PCP Internal Medicine; Visit Provider Urology
DX: N32.81 Overactive bladder (principal); N39.41 Urge incontinence
CPT/HCPCS: 76770

== ENCOUNTER → 2022-09-08 11:36 | Outpatient (BNVA) | payer MEDICARE, SELFPAY | PROVIDERS: PCP Internal Medicine; Visit Provider Nurse Practitioner Family | DX: N32.81 Overactive bladder (principal); N39.41 Urge incontinence | CPT/HCPCS: 51798; 99212 ==

== ENCOUNTER 2023-03-18 13:25 | Outpatient (AMB) | payer MEDICARE, SELFPAY ==
--- NOTE | 2023-03-18 13:33 | A.OFFVIS_ITS ---
Intake Intake Visit Reasons: 6m/PVR Intake Note: Patient is present for follow up OAB/incontinence Urology Medications: myrbetriq, vesicare Blood Thinner: none PVR: 0ml's Communications Technologist Required: No Accompanied by: Self / Same As Patient Allergies Sulfa (Sulfonamide Antibiotics) Adverse Reaction (Verified 03/18/23 14:15) Nausea and Vomiting Medication List - Last Reconciled 03/18/23 by EUGENIA TorrezP- fluticasone propionate 50 mcg/actuation sprays intranasal ibuprofen 800 mg PO TID lidocaine 5% 1 patch topical DAILY lisinopril 10 mg PO DAILY methylphenidate HCl 5 mg PO DAILY mirabegron ER (Myrbetriq) 50 mg PO DAILY 90 days omeprazole 20 mg PO DAILY solifenacin (Vesicare) 5 mg PO DAILY 90 days [Thigh high compression stocking 30/40mmHG] tramadol 50 mg PO TID PRN HPI HPI Comments History of Present Illness Details Sarah is a 81-year-old female patient of Dr. Whyte. She has a past medical history of osteoarthritis, melanoma of the left leg, arthritis, low-back pain, carpal tunnel, ADHD, GERD, and hypertension She presents to the office today for follow-up regarding her urinary issues. Of note, patient was seen approximately 6 months ago and started on Myrbetriq 50 mg daily for urinary symptoms of overactive bladder and dribbling. When asked she reports noting significant improvement in lower urinary tract symptoms on Myrbetriq. She does however continue to report episodes of incontinence. She reports this to not be bothersome as all her other urinary symptoms have improved on Myrbetriq. In office urinalysis results reviewed with the patient today. PVR 0 mL. Previous workup has included renal/bladder ultrasound results reviewed with the patient today. Right kidney with no calculi or hydronephrosis noted. Small cyst in mid pole measuring 6 x 7 mm with no imaging follow-up recommended. Left kidney with no calculi, lesions, or hydronephrosis noted. The bladder is well distended and normal. Pre void bladder volume is 382 mL. There is no postvoid residuals. When asked patient denies hematuria, flank pain, chills, and or fever. 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 She otherwise offers no other issues or concerns at this time. [facility] Medical History Osteoarthritis of right knee Rotator cuff tear Melanoma Arthritis Low back pain Carpal tunnel syndrome of left wrist ADHD GERD (gastroesophageal reflux disease) HTN (hypertension) Surgical History History of carpal tunnel release History of appendectomy History of total left hip replacement Social History Are you a primary weekend caregiver to a significant other at home: No Do you presently have visiting nurse or other home services: No Patient Tobacco Use Status: Never used Tobacco service: No Current occupational status: retired Current occupation: rt handed Review of Systems Eyes Reports no additional complaints ENT Reports no additional complaints Card Reports as per HPI Resp Reports no additional complaints GI Reports as per HPI Reports as per HPI Musc Reports as per HPI Neuro Reports as per HPI Psych Reports no additional complaints Endo Reports no additional complaints Kareem/Lymph Reports no additional complaints Aller/Immun Reports no additional complaints Physical Exam Const General: cooperative, comfortable, no acute distress, well developed, alert and awake Nutritional Appearance: average body habitus Orientation/consciousness: patient oriented x3 HEENT Head: Yes normal to inspection, Yes normocephalic and Yes atraumatic Eyes General: appearance normal, both eyes and all related structures Neck Neck: Yes normal visual inspection and Yes trachea midline Chest Chest palpation & inspection: normal inspection of the chest Resp Effort & Inspection: normal respiratory effort and able to speak in complete sentences Cardio Rate: regular rate GI Inspection: Yes normal to inspection General: Yes no CVA tenderness Back/Spine/Pelvis Back: no CVA tenderness Neuro General: patient oriented x3 Psych Appearance: grossly normal and well kempt Mental Status: mental status grossly normal Speech and movement: Normal speech and movement present and Clear speech present Affect: normal affect Attitude: cooperative Thought process: Normal thought process present Thought content: Normal thought content present Insight: Fair insight present (Psych) Judgement: Fair judgement present (Psych) Office Procedures Post Void Residual Post Residual Void Post Void Residual (PVR): 0 92298-Qolp Void Residual by ultrasound Results AMB Urinalysis, Automated UA Leukoctes 0 Jie/uL Last Edit by Bindu Dela Cruz on 03/18/23 13:55 UA Nitrite Last Edit by Bindu Dela Cruz on 03/18/23 13:55 UA Urobilinogen 0.2 mg/dL Last Edit by Bindu Dela Cruz on 03/18/23 13:55 UA Protein 0 mg/dL Last Edit by Bindu Dela Cruz on 03/18/23 13:55 UA pH 6.5 Last Edit by Bindu Dela Cruz on 03/18/23 13:55 UA Blood 0 Gurjit/uL Last Edit by Bindu Dela Cruz on 03/18/23 13:55 UA Specific Dittmer 1.010 Last Edit by Bindu Dela Cruz on 03/18/23 13:55 UA Ketone Negative Last Edit by Bindu Dela Cruz on 03/18/23 13:55 UA Bilirubin 0 mg/dL Last Edit by Bindu Dela Cruz on 03/18/23 13:55 UA Glucose 0 mg/dL Last Edit by Bindu Dela Cruz on 03/18/23 13:55 Results Reviewed Results Reviewed: Laboratory Last Values Urine pH (Auto) 6.5 03/18/23 13:39 Specific Dittmer (Auto) 1.010 03/18/23 13:39 Urine Protein (Auto) 0 mg/dL 03/18/23 13:39 Glucose (UA)(Auto) 0 mg/dL 03/18/23 13:39 Urine Ketones (Auto) Negative 03/18/23 13:39 Urine Blood (Auto) 0 Gurjit/uL 03/18/23 13:39 Urine Bilirubin (Auto) 0 mg/dL 03/18/23 13:39 Urine Urobilinogen (Auto) 0.2 mg/dL 03/18/23 13:39 Leukocyte Esterase (Auto) 0 Jie/uL 03/18/23 13:39 Assessment & Plan Assessment & Plan (1) Overactive bladder: Code(s): N32.81 - Overactive bladder (2) Urinary incontinence, urge: Code(s): N39.41 - Urge incontinence Plan In office urinalysis results reviewed with the patient today; as noted above. PVR 0 mL. Continue Myrbetriq as patient reports significant improvement in urinary symptoms while taking this medication. Patient reports to be happy with current voiding parameters Discussed further assessment with urodynamics given episodes of incontinence Discussed educated, instructed importance of drinking plenty of water daily. Follow-up 6 months with PVR; or sooner with any issues, concerns, and or questions. Orders: Orders AMB Urinalysis Automated Today Z13.9 - Encounter for screening, unspecified AMB Post Void Residual by ultrasound Today N32.81 - Overactive bladder Patient Instructions: The patient had an opportunity to ask questions regarding the treatment plan. All questions were answered. Physical exam, labs, and imaging were discussed and reviewed in detail. As well as risks, benefits, and discussion of treatment choices. No major barriers to understanding were identified. The patient expressed understanding and agreement with the above treatment plan. The patient was made aware they should contact our office by phone for worsening of their current condition, the appearance of new symptoms, or with any questions or concerns. Compliance is encouraged with any medications and follow up testing that is ordered. It is a privilege to be allowed the opportunity to participate in? your urological care.? Again, if you have any questions or concerns If you have any questions or concerns please do not hesitate to contact me. The office is [phone]. This note is constructed using voice recognition software. While every effort has been made to ensure accuracy dowel setting machine operator errors may have been included. Yours sincerely, NICOLE Torrez Coding Level of Care Code Est Pt Level 3 (81868) Diagnoses Overactive bladder N32.81 Urinary incontinence, urge N39.41 CPT Codes Post Residual Void - PVR CPT Code: 36556-Veot Void Residual by ultrasound ([id number])
== END 2023-03-18 14:21 | disposition home or self-care (01) ==
PROVIDERS: Visit Provider Nurse Practitioner Family
DX: N32.81 Overactive bladder (principal); N39.41 Urge incontinence; Z13.9 Encounter for screening, unspecified
CPT/HCPCS: 99213

== ENCOUNTER → 2023-03-18 13:25 | Outpatient (BNVA) | payer MEDICARE, SELFPAY | PROVIDERS: Visit Provider Nurse Practitioner Family | DX: N39.41 Urge incontinence (principal); N32.81 Overactive bladder | CPT/HCPCS: 51798; 81003; 99212 ==

== ENCOUNTER 2023-06-12 13:04 | Outpatient (REF) | payer MEDICARE, SELFPAY ==
--- NOTE | ~2023-06-12 | XR_ITS ---
EXAMINATION: XR HIP, RIGHT CLINICAL INFORMATION: Pain COMPARISON: None available. TECHNIQUE: Two views of the right hip. FINDINGS: There is degenerative change here. Loss of central joint space with sclerotic change on both sides of the joint. Degenerative cystic formation also likely present. The femoral head contour remains smooth. Degeneration along the greater trochanter. XR/XR hip RT min 2V IMPRESSION: Moderate degenerative changes. No acute finding
== END 2023-06-12 13:05 | disposition home or self-care (01) ==
LOC: HO.HMGCX 13:04
PROVIDERS: PCP Internal Medicine; Visit Provider Internal Medicine
DX: M25.551 Pain in right hip (principal); Z91.81 History of falling
CPT/HCPCS: 73502

== ENCOUNTER 2025-01-31 13:27 | Outpatient (AMB) | payer MEDICARE, SELFPAY ==
--- NOTE | 2025-01-31 13:28 | A.OFFPC_ITS ---
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 Accompanied by: Self / Same As Patient Allergies No Known Allergies Allergy (Verified 01/31/25 14:08) Medication List - Last Reconciled 01/31/25 by Karlee Campa PA-C amlodipine 10 mg PO DAILY fluticasone propionate 50 mcg/actuation sprays intranasal furosemide 20 mg PO DAILY ibuprofen 800 mg PO TID lidocaine 5% 1 patch topical DAILY lisinopril 10 mg PO DAILY methylphenidate HCl 5 mg PO DAILY metoprolol succinate ER 50 mg PO DAILY omeprazole 20 mg PO DAILY [Thigh high compression stocking 30/40mmHG] tramadol 50 mg PO TID PRN Tobacco use date assessed: 01/31/25 Fall risk assessment: No Falls in past year Last assessed Fall Risk: 01/31/25 Dental Screening Dental Screen Date: 01/31/25 Did you have a dental visit in the last 12 months?: No Did you have a dental problem in the last 6 months where you did not have access to dental care?: No Was dental information given to patient?: Patient has dentist HPI Anisha Pérez/ Dr. Larkin HPI Details The patient is an 84-year-old female presenting for a new patient appointment and management of chronic conditions. The patient has a history of hypertension, which was noted to have increased last winter due to stress and edema in her legs. She is currently on amlodipine 10 mg daily, and her blood pressure is reported to be well-controlled at this visit. The patient reports chronic edema, primarily in her right leg, which has recently worsened. She attributes the edema to stress and notes that it has caused significant discomfort and concern. The patient has a history of arthritis, for which she takes ibuprofen 800 mg as needed, and uses lidocaine patches for pain management. 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 The patient has been diagnosed with ADHD and has been on Adderall for many years. She is aware that Adderall can elevate blood pressure but has not noted any significant issues related to this. The patient experiences symptoms of gastroesophageal reflux disease (GERD) and is currently out of her omeprazole medication. Social History - Smoking: Denies smoking history - Substance Use: Denies illicit drug use [facility] Medical History (Updated 01/31/25 @ 14:45 by Karlee Campa PA-C) Pedal edema Chronic back pain Osteoarthritis of right knee Rotator cuff tear Melanoma Arthritis Low back pain Carpal tunnel syndrome of left wrist ADHD GERD (gastroesophageal reflux disease) HTN (hypertension) Surgical History (Updated 01/31/25 @ 14:45 by Karlee Campa PA-C) History of hip replacement History of carpal tunnel release History of appendectomy History of total left hip replacement Family History Father Circulation problem Mother No problems noted. Social History Housing: House Are you a primary plant health care technician to a significant other at home: No Do you presently have visiting nurse or other home services: No Alcohol intake: current Alcohol intake frequency: a few times a week Patient Tobacco Use Status: Never used Tobacco service: No Current occupational status: retired Cognitive needs: Yes (cane) Hearing needs: No Vision needs: Yes (rx glasses) Questionnaire PHQ-9 Over the last 2 weeks, how often have you been bothered by any of the following problems? 1. Little interest or pleasure in doing things: not at all 2. Feeling down, depressed, or hopeless: not at all 3. Trouble falling or staying asleep, or sleeping too much: not at all 4. Feeling tired or having little energy: not at all 5. Poor appetite or overeating: not at all 6. Feeling bad about yourself - or that you are a failure or have let yourself or your family down: not at all 7. Trouble concentrating on things, such as reading the newspaper or watching television: not at all 8. Moving or speaking so slowly that other people could have noticed. Or the opposite - being so fidgety or restless that you have been moving around a lot more than usual: not at all 9. Thoughts that you would be better off or of hurting yourself in some way: not at all Total score: 0 Depression Screening Interpretation: Negative Depression Screening Done: Yes 93952 - PHQ-9 Billing: Yes Source: Developed by Drs. David Paz, Chelita Erazo, Garrett Valladares and colleagues, with an educational maye from [employer]. Thrive Questionnaire Date Thrive assessed: 01/31/25 I am a: Patient What is your living situation today?: I have a steady place to live Within the past 12 months, did the food you bought not last and you didn't have the money to get more?: Never true Within the past 12 months, did you worry whether your food would run out before you got money to buy more?: Never true Do you have trouble paying for medicines?: No Do you have trouble getting transportation to medical appointments?: No Do you have trouble paying your heating and electricity bill?: No Do you have trouble taking care of your child, family member or friend?: No Do you have trouble with day-to-day activities such as bathing, preparing meals, shopping, managing finances, etc.?: No Are you currently unemployed and looking for a job?: No Are you interested in more education?: No Please select the resources that you would like help with: None THRIVE Score: 0 AUDIT C Alcohol Use Questionnaire (AUDIT-C) 1. How often do you have a drink containing alcohol?: 2-3 times a week 2. How many drinks containing alcohol do you have on a typical day when you are drinking?: 1 or 2 3. How often do you have six or more drinks on one occasion?: Never Total Score: 3 Score Reviewed/Action Taken: No JAC-7 AMB Questionnaire JAC-7 Date JAC - 7 assessed: 01/31/25 Feeling nervous, anxious, or on edge: 0 = Not at all Not being able to stop or control worryin = Not at all Worrying too much about different things: 0 = Not at all Trouble relaxin = Not at all Being so restless that it is hard to sit still: 0 = Not at all Becoming easily annoyed or irritable: 0 = Not at all Feeling afraid as if something awful might happen: 0 = Not at all Total JAC-7 score (0-4 normal; 5-9 mild; 10-14 moderate; 15-21 severe): 0 Source: Developed by Drs. David Paz, Chelita Erazo, Garrett Valladares and colleagues, with an educational maye from [employer]. JAC-7 Assessment Billing JAC-7 Assessment Tool: JAC-7 Assessment 68805 Review of Systems Const Details: - Cardiovascular: Reports edema in legs. Denies chest pain or palpitations. - Musculoskeletal: Reports arthritis and leg length discrepancy due to hip replacement. Denies acute joint pain. - Gastrointestinal: Reports symptoms of GERD. Denies abdominal pain or nausea. - Respiratory: Denies dyspnea or cough. All systems reviewed & are unremarkable except as noted in HPI and below Physical exam (Primary Care) Vital Signs: Last Vital Signs Temp 97.2 F 01/31/25 13:45 Pulse 80 01/31/25 13:45 Resp 16 01/31/25 13:45 BP 120/70 01/31/25 13:45 Pulse Ox 94 01/31/25 13:45 Oxygen Delivery Method Room Air 01/31/25 13:45 Care Plan Goal for BP management: <140/90 at Goal BMI result Body Mass Index 22.8 Normal BMI Tobacco/Smoking Status: Tobacco use Status Tobacco use date assessed 01/31/25 01/31/25 13:33 Patient Tobacco Use Status Never used Tobacco 01/31/25 13:45 PHQ-9: PHQ-9 Score PHQ-9: Total score 0 01/31/25 14:09 Depression Screening Interpretation: Negative Thrive Assessment: Date of Thrive Assessment Date Thrive assessed 01/31/25 01/31/25 13:33 Const Other: Appearance: Alert. Oriented X3. No acute distress. Head: Normal external exam. Normocephalic. Atraumatic. Eyes: Pupils are equal, round, and reactive to light. Extraocular movements intact. Conjunctiva and sclera normal. Eyelids normal. Throat: Pharynx normal. Uvula midline. Moist mucous membranes. Neck: Normal inspection. Neck supple. Full range of motion. Cardiovascular: Normal heart rate and rhythm. Respiratory: No respiratory distress. Painless inspiration. Back: No costovertebral angle tenderness. Full range of motion noted. Skin: Skin warm and dry. Normal skin color. Normal skin turgor. No rashes/lesions/lacerations noted. Extremities: Edema noted in the right leg, more swollen than the left. Extremities exhibit normal range of motion. Neuro: Oriented X 3. No motor deficit. No sensory deficit. Reflexes normal. Coding Level of Care Code New Pt Level 4 (44573) Complex EM visit Add On G2211 Diagnoses HTN (hypertension) I10 Pedal edema R60.0 Arthritis M19.90 ADHD F90.9 History of hip replacement Z96.649 GERD (gastroesophageal reflux disease) K21.9 Additional Codes JAC-7 Assessment Billing - JAC-7 Assessment Tool: JAC-7 Assessment 36339 ([id number]) PHQ-9 - 61987 - PHQ-9 Billing: Yes ([id number]) Assessment & Plan Assessment & Plan (1) HTN (hypertension): Code(s): I10 - Essential (primary) hypertension Category: Medical Plan: The patient is currently on amlodipine 10 mg daily for hypertension, which is well-controlled at this visit. It was noted that stress and edema may have contributed to previous elevations in blood pressure. (2) Pedal edema: Code(s): R60.0 - Localized edema Category: Medical Plan: The patient reports chronic edema, primarily in the right leg, which has worsened recently. An ultrasound of the legs and a chest x-ray have been ordered to evaluate for potential underlying causes, including congestive heart failure. (3) Arthritis: Code(s): M19.90 - Unspecified osteoarthritis, unspecified site Category: Medical Plan: The patient manages arthritis with ibuprofen 800 mg as needed and lidocaine patches for pain relief. (4) ADHD: Code(s): F90.9 - Attention-deficit hyperactivity disorder, unspecified type Category: Medical Plan: The patient has been on Adderall for ADHD for many years, and the dosage is being adjusted to 30 tablets per month. (5) History of hip replacement: Code(s): Z96.649 - Presence of unspecified artificial hip joint Category: Medical Plan: The patient has a history of a failed hip replacement resulting in a two-inch leg length discrepancy, contributing to her musculoskeletal issues. (6) GERD (gastroesophageal reflux disease): Code(s): K21.9 - Gastro-esophageal reflux disease without esophagitis Category: Medical Plan: The patient is currently out of omeprazole and a refill has been requested. Plan Plan Patient was informed and verbally consented to the use of an ambient scribe for clinic note documentation during this visit. 1. Hypertension The patient is currently on amlodipine 10 mg daily for hypertension, which is well-controlled at this visit. It was noted that stress and edema may have contributed to previous elevations in blood pressure. 2. Edema The patient reports chronic edema, primarily in the right leg, which has worsened recently. An ultrasound of the legs and a chest x-ray have been ordered to evaluate for potential underlying causes, including congestive heart failure. 3. Arthritis The patient manages arthritis with ibuprofen 800 mg as needed and lidocaine patches for pain relief. 4. Attention Deficit Hyperactivity Disorder (Adhd) The patient has been on Adderall for ADHD for many years, and the dosage is being adjusted to 30 tablets per month. 5. Gastroesophageal Reflux Disease (Gerd) The patient is currently out of omeprazole and a refill has been requested. 6. 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 I discussed with the patient the management of her chronic conditions, including hypertension, edema, and arthritis. We reviewed her current medications and adjusted the dosages of Adderall and tramadol to align with our practice's guidelines. I explained the need for a pain management contract and the process for random drug testing and pill counts. We also discussed the importance of follow-up appointments and the need for diagnostic tests, including a chest x- ray and leg ultrasound, to further evaluate her edema. Orders: Orders Drug Screen Urine Today G89.29 - Other chronic pain, M54.9 - Dorsalgia, unspecified Complete Blood Count Auto Diff Today Z00.00 - Encounter for general adult medical examination without abnormal findings TSH reflex Free T4 Today Z00.00 - Encounter for general adult medical examination without abnormal findings US venous duplex LE BI Today R60.0 - Localized edema C Reactive Protein Today Z00.00 - Encounter for general adult medical examination without abnormal findings Comprehensive [place]. Panel Fast Today Z00.00 - Encounter for general adult medical examination without abnormal findings Lipid Panel Today Z00.00 - Encounter for general adult medical examination without abnormal findings Hemoglobin A1c Today Z00.00 - Encounter for general adult medical examination without abnormal findings Magnesium Today Z00.00 - Encounter for general adult medical examination without abnormal findings Liver Panel Today Z00.00 - Encounter for general adult medical examination without abnormal findings Vitamin B12 and Folate Today Z00.00 - Encounter for general adult medical examination without abnormal findings Vitamin D 25-OH Total Today Z00.00 - Encounter for general adult medical examination without abnormal findings B Type Natriuretic Peptide Today R60.0 - Localized edema XR chest 2V Today R60.0 - Localized edema Medications: Refilled omeprazole 20 mg PO DAILY 90 caps 3RF Patient Instructions: - Continue taking amlodipine 10 mg daily for blood pressure management. - Take furosemide as prescribed, and increase to 40 mg for three days if swelling worsens. - Use ibuprofen and lidocaine patches as needed for arthritis pain. - Follow up with blood work and imaging tests as ordered. - Attend follow-up appointment in one month. - Sign the pain management contract and comply with random drug testing and pill counts.
[2025-01-31 13:45] VITALS: BP 120/70; PULSE 80; RESP 16; TEMP 36.2; O2SAT 94; BMI 22.8
== END 2025-01-31 14:20 | disposition home or self-care (01) ==
LOC: HO.HMCSH 13:27
PROVIDERS: PCP Internal Medicine; Visit Provider Physician Assistant Medical
DX: I10 Essential (primary) hypertension (principal); R60.0 Localized edema; M19.90 Unspecified osteoarthritis, unspecified site; F90.9 Attention-deficit hyperactivity disorder, unspecified type; Z96.649 Presence of unspecified artificial hip joint; K21.9 Gastro-esophageal reflux disease without esophagitis

== ENCOUNTER → 2025-01-31 13:27 | Outpatient (BNVA) | payer MEDICARE, SELFPAY | PROVIDERS: PCP Internal Medicine; Visit Provider Physician Assistant Medical | DX: I10 Essential (primary) hypertension (principal); R60.0 Localized edema; M19.90 Unspecified osteoarthritis, unspecified site; F90.9 Attention-deficit hyperactivity disorder, unspecified type; K21.9 Gastro-esophageal reflux disease without esophagitis; Z79.899 Other long term (current) drug therapy | CPT/HCPCS: 96127; 99202 ==

== ENCOUNTER 2025-02-24 11:06 | Outpatient (REF) | payer MEDICARE, SELFPAY ==
--- OUTSIDE RECORDS SUMMARY | 2024-04-05 06:00 | XMS_ITS ---
Author Organization [facility] Address [address] [place] [address] Care Team Providers Care Home Care Chaplain Name Role Phone Nehemiah Whyte MD Primary Care Provider Unavailab Helena Bejarano [phone] REASON FOR VISIT Transfer to Different Provider Encounters Encounter Location Date Provider Diagnosis [address] [address] 04/05/2024 Helena Tan Plan Of Treatment No Information Progress Notes * Rodolfo YEUNGB:1940 ( 84 yo F)Acc No.[id number]:04/05/2024 Progress Note Patient: Sarah FRYE Provider: Savanah Tan DPM :1940 A ge:83 Y S ex:Female Date:04/05/2024 Address:[address] [place], [place] [id number] Pcp:Nehemiah Whyte MD Subjective: * Chief Complaints: [...] Date: 06/05/2023 Generated for Printi ng/Faxing/eTransmitting on: 0 02/24/2025 12:51 PM EDT
--- OUTSIDE RECORDS SUMMARY | 2024-12-20 11:15 | XMS_ITS ---
Author Organization [facility] Address [address] [facility] [place] [address] Care Team Providers Care Poker Room Manager Name Role Phone Nehemiah Whyte MD Primary Care Provider Unavailab Helena Bejarano [phone] Encounters Encounter Location Date [facility] [address] 12/20/2024 Helena Tan Plan Of Treatment No Information Progress Notes * Luly YEUNGLiliyaB:1940 ( 84 yo F)Acc No.[id number]:12/20/2024 Progress Note Patient: Sarah FRYE Provider: Savanah Tan DPM :1940 A ge:84 Y S ex:Female Date:12/20/2024 Address:[address] [place], [place] [phone] Pcp:Nehemiah Whyte MD Subjective: * Chief Complaints: [...] 0 12/20/2024 Generated for Printi ng/Faxing/eTransmitting on: 0 02/24/2025 12:51 PM EDT
--- OUTSIDE RECORDS SUMMARY | 2025-01-10 07:00 | XMS_ITS ---
Author Organization [facility] Address [address] [place] [address] Care Team Providers Care Lift Truck Mechanic Name Role Phone Nehemiah Whyte MD Primary Care Provider Unavailab Helena Bejarano [phone] Encounters Encounter Location Date Provider Diagnosis [facility] [address] 01/10/2025 Helena Tna Plan Of Treatment No Information Progress Notes * Luly YEUNGLiliyaB:1940 ( 84 yo F)Acc No.[id number]:01/10/2025 Progress Note Patient: Sarah FRYE Provider: Savanah Tan DPM :1940 A ge:84 Y S ex:Female Date:01/10/2025 Address:[address] [place], [place] [id number] Pcp:Nehemiah Whyte MD Subjective: * Chief Complaints: [...] 0 01/10/2025 Generated for Printi ng/Faxing/eTransmitting on: 0 02/24/2025 12:51 PM EDT
--- OUTSIDE RECORDS SUMMARY | 2025-02-24 12:51 | XMS_ITS ---
Author Organization [facility] Center Support Name Relationship Address Phone Litzy Haddad Personal Relationship [address] [place] [address] Mental Status Section Date Assessment Total Score Description 04/15/2015 BIMS 15 cognitively int act PHQ-9 00 Problems Problem # Description Date of onset Resolved Date Code CodeSystem Concern Status 1 AFTERCARE FOLLOWING JOINT REPLACEMENT SURGERY 04/13/[address] active 2 AGE-RELATED OSTEOPOROSIS WITHOUT CURRENT PATHOLOGICAL FRACTURE 04/13/[address] active 3 ATTENTION-DEFICIT HYPERACTIVITY DISORDER, PREDOMINANTLY HYPERACTIVE TYPE 04/13/[address] active 4 UNILATERAL PRIMARY OSTEOARTHRITIS, LEFT HIP 04/13/[address] active Reason for Referral No Reasons for Referral Entered Social History Social History Observation Description Start Date End Date Code Code System Current Smoking Status Tobacco smoking consumption unknown 545595027 SNOMED CT Sex Assigned At Female 1940 [address]0 [facility] Gender Identity Sexual Orientation Vital Signs Code Code System Vitals Name Values and Units Timing Information 8867-4 LOINC Heart rate Value=78.0 Units=/min 8462-4 LOINC Blood Pressure-Diastolic Value=68 Un its=mmHg 04/14/2015 8480-6 LOINC Blood Pressure-Systolic Lscaq=821 Un its=mmHg 04/14/2015 93230-3 LOINC Weight Sqpdo=443.0 Units=Lbs
--- OUTSIDE RECORDS SUMMARY | 2025-02-24 12:52 | XMS_ITS | Patient Health Record ---
Author Organization [facility] [place] Address [address] [place] [address] Care Team Providers Care Compliance Aide Name Role Phone Nehemiah Whyte MD Primary Care Provider Unavailab Helena Bejarano Unavailable [phone] Ethan Myers Unavailable [phone] Allergies No Known Allergies Reason For Referral No Information Medications Medication SIG (Take, Route, Frequency, Duration) Notes Start Date End Date Status Fluticasone Propionate 50 MCG/ACT Nasal; Duration: 30 Active Omeprazole 20 MG Oral; Duration: 90 Active Lisinopril-hydroCHLOROthiaz jus 10-12.5 MG Oral; Duration: 90 Active Methylphenidate HCl 10 MG 1 tablet Orall y Twice a day Active Lasix Active Cephalexin 300 as directed Orally four times a day Not-Taking traMADol HCl 50 MG (Schedule IV Drug) Oral; Duration: 30 PRN Active Ibuprofen 800 MG Oral; Duration: 30 PRN Active Immunizations Vaccine Route Administration Date Status Comme nts COVID-19 Pfizer BioNTech Vaccine Unknown 09/19/2020 Adm inistered 08/27/20, Social History Tobacco Use: Social History Observation Description Date Details (start date - stop date) Never Smoker NA - NA Alcohol Screen Question Answer Notes Did you have a drink contain ing alcohol in the past year? Yes How often did you have a dri nk containing alcohol in the past year? 2 to 3 times a week (3 points) Points 3 Interpretation Positive Tobacco use other than smoking: Question Answer Notes Are you an other tobacco user? No Tobacco Control (Standard) Question Answer Notes Tobacco use: Nonsmoker Additional Findings: Tobacco non-user Current no nsmoker Problems Problem Type SNOMED Code ICD Code Onset Dates Problem Status W/U Status Risk Notes Problem Bilateral atherosclerosis of arteries of lower limbs (disorder) ([id number] ) Atherosclerosis of [place] artery of both lower extremities, with unspecified presence of clinical manifestation (I70.203) Active confirmed Q7(A), Q8(2B), Q9(1B,2 C) Vital Signs Blood pressure diastolic 74 mm Hg 09/20/2024 Height 5 ft in 09/20/2024 Blood pressure systolic 132 mm Hg 09/20/2024 Weight 100 lbs 09/20/2024 BMI 19.53 kg/m2 09/20/2024 Procedures Procedure Date Ordered Date Performed Result Body Sit e 53509-MXJVPEH NAIL, 6 OR MORE 05/13/2024 N/A 95917-AQBC SKIN LESIONS, OVER 4 05/13/2024 N/A 79878-MLUCMEL NAIL, 6 OR MORE 09/20/2024 N/A 62697-PXJO SKIN LESIONS, OVER 4 09/20/2024 N/A Encounters Encounter Location Date Provider Diagnosis [address] [address] 05/13/2024 Helena Tan Atherosclerosis of [place] artery of both lower extremities, with unspecified presence of clinical manifestation I70.203 ; Tinea unguium B35.1 ; Pain in right toe(s) M79.674 and Pain in left toe(s) M79.[address] [address] 09/20/2024 Helena Tan Atherosclerosis of [place] artery of both lower extremities, with unspecified presence of clinical manifestation I70.203 ; Tinea unguium B35.1 ; Pain in right toe(s) M79.674 and Pain in left toe(s) M79.[address] [address] 10/31/2024 Helena Tan [address] [address] 12/20/2024 Helena Tan [address] [address] 01/09/2025 Helena Tan Assessments Encounter Date Diagnosis (ICD Code) Assessment Notes Treatment Notes Treatment Clinical Notes Section Notes 05/13/2024 Atherosclerosis of [place] artery of both lower extremities, with unspecified presence of clinical manifestation (ICD-10 - I70.203) Q7(A), Q8(2B), Q9(1B,2C) 09/20/2024 Atherosclerosis of [place] artery of both lower extremities, with unspecified presence of clinical manifestation (ICD-10 - I70.203) Q7(A), Q8(2B), Q9(1B,2C) 09/20/2024 Tinea unguium (ICD-10 - B35.1) 05/13/2024 Tinea unguium (ICD-10 - B35.1) 05/13/2024 Pain in right toe(s) (ICD-10 - M79.674) 09/20/2024 Pain in right toe(s) (ICD-10 - M79.674) 05/13/2024 Pain in left toe(s) (ICD-10 - M79.675) 09/20/2024 Pain in left toe(s) (ICD-10 - M79.675) Plan Of Treatment Pending Test Test Name Order Date 37808-[id number] NAIL, 6 OR MORE 06/12/2015 90488-XBKEOZK NAIL, 6 OR MORE 05/13/2024 95107-GRPMGSD NAIL, 6 OR MORE 09/20/2024 48816-EGRT SKIN LESIONS, OVER 4 09/21/19 25 71411-GXFQ SKIN LESIONS, OVER 4 05/13/20 24 96300-BSNZ SKIN LESIONS, 2 TO 4 03/19/20 21 17075-VXGP SKIN LESIONS, 2 TO 4 06/18/19 22 Insurance Providers Payer Name Payer Address Payer Phone Subscriber Number Group Number Insured Name Patient Relationship to Insured Coverage Start Date Coverage End Date [employer] Medicare [id number] [address] [address] [place] [phone] [id number] Sarah Yeung Self - patient is the insured Medical (General) History Medical History History ICD Code Osteoporosis Polio Back,Hip,and Knee pain Measles Mumps Chicken pox Surgical History Surgery Date(Month/Year) carpal tunnel surgery hip replacement tubal ligation appendectomy right knee replacement 01/15/2021
[2025-02-24 13:16] LABS: MANUAL DIFF FLAG NO
[2025-02-24 13:25] LABS: Hematocrit 38.1 % (37.0-47.0); Hemoglobin 12.7 g/dl (12.0-16.0); Imm Gran Abs Auto 0.01 X10*3/uL (0.00-0.03); Imm Gran Pct Auto 0.1 % (0.0-0.4); Lymphocytes Absolute Auto 1.7 X10*3/uL (1.2-4.9); Mean Corpuscular HGB Conc 33.3 g/dl (31.0-35.0); Mean Corpuscular Hemoglobin 30.5 pg (27.0-33.0); Mean Corpuscular Volume 91.4 fL (80.0-98.0); NRBC Abs Auto 0.000 X10*3/uL (0.0-0.012); NRBC Pct Auto 0.0 /100WBC (0.0-0.2); Platelet Count 260 X10*3/uL (160-400); Red Blood Count 4.17 X10*6/uL (4.20-5.50); White Blood Count 7.1 X10*3/uL (4.8-10.8)
[2025-02-24 13:31] LABS: Cannabinoid Screen Urine Not Detected (Not Detect)
[2025-02-24 14:09] LABS: Alanine Aminotransferase 16 U/L (0-31); Albumin Level 4.7 g/dL (3.5-5.0); Alkaline Phosphatase 61 U/L (39-117); Anion Gap 12 (12-20); Aspartate Amino Transferase 29 U/L (5-31); Blood Urea Nitrogen 16 mg/dL (9-16); Calcium 9.4 mg/dL (8.4-10.2); Carbon Dioxide 23 mmol/L (22-29); Chloride 108 mmol/L (96-108); Cholesterol 163 mg/dL (<200); Estimated Glomerular Filt Rate > 60; HDL Cholesterol 45 mg/dL (>40); Magnesium 2.0 mg/dL (1.6-2.6); Potassium 4.2 mmol/L (3.3-5.1); Sodium 139 mmol/L (135-145); Total Protein 7.0 g/dL (6.5-8.0); Triglycerides 108 mg/dL (<150)
[2025-02-24 14:40] LABS: Folate 16.6 ng/mL (> or = 4.0); Vitamin B12 657 pg/mL (200-900)
== END 2025-02-24 11:07 | disposition home or self-care (01) ==
LOC: HO.HMGCLDS 11:06
PROVIDERS: PCP Physician Assistant Medical; Visit Provider Physician Assistant Medical
DX: Z00.00 Encounter for general adult medical examination without abnormal findings (principal); M54.9 Dorsalgia, unspecified; G89.29 Other chronic pain; Z13.6 Encounter for screening for cardiovascular disorders; Z13.29 Encounter for screening for other suspected endocrine disorder; Z13.1 Encounter for screening for diabetes mellitus; Z13.21 Encounter for screening for nutritional disorder
CPT/HCPCS: 80053; 80061; 80076; 80307; 82248; 82306; 82607; 82746; 83036; 83735; 84443; 85025; 86140

== ENCOUNTER 2025-03-01 10:33 | Outpatient (AMB) | payer MEDICARE, SELFPAY ==
--- OUTSIDE RECORDS SUMMARY | 2024-04-05 06:00 | XMS_ITS ---
Author Organization [facility] Address [address] [place] [address] Care Team Providers Care Supplier Diversity Director Name Role Phone Nehemiah Whyte MD Primary Care Provider Unavailab Helena Bejarano [phone] REASON FOR VISIT Transfer to Different Provider Encounters Encounter Location Date Provider Diagnosis [address] [address] 04/05/2024 Helena Tan Plan Of Treatment No Information Progress Notes * Rodolfo YEUNGB:1940 ( 84 yo F)Acc No.[id number]:04/05/2024 Progress Note Patient: Sarah FRYE Provider: Savanah Tan DPM :1940 A ge:83 Y S ex:Female Date:04/05/2024 Address:[address] [place], [place] [id number] Pcp:Nehemiah Whyte MD Subjective: * Chief Complaints: [...] Date: 06/05/2023 Generated for Printi ng/Fabenedictg/eTransmitting on: 12:09 PM EDT
--- OUTSIDE RECORDS SUMMARY | 2024-12-20 11:15 | XMS_ITS ---
Author Organization [facility] Address [address] [place] [address] Care Team Providers Care Rock Climbing Team Member Name Role Phone Nehemiah Whyte MD Primary Care Provider Unavailab Helena Bejarano [phone] Encounters Encounter Location Date [facility] [address] 12/20/2024 Helena Tan Plan Of Treatment No Information Progress Notes * Luly YEUNGLiliyaB:1940 ( 84 yo F)Acc No.[id number]:12/20/2024 Progress Note Patient: Sarah FRYE Provider: Savanah Tan DPM :1940 A ge:84 Y S ex:Female Date:12/20/2024 Address:[address] [place], [place] [phone] Pcp:Nehemiah Whyte MD Subjective: * Chief Complaints: [...] 0 12/20/2024 Generated for Printi ng/Faxing/eTransmitting on: 12:09 PM EDT
--- OUTSIDE RECORDS SUMMARY | 2025-01-10 07:00 | XMS_ITS ---
Author Organization [facility] Address [address] [facility] [place] [address] Care Team Providers Care Community Living Instructor Name Role Phone Nehemiah Whyte MD Primary Care Provider Unavailab Helena Bejarano [phone] Encounters Encounter Location Date [facility] [address] 01/10/2025 Helena Tan Plan Of Treatment No Information Progress Notes * Luly YEUNGLiliyaB:1940 ( 84 yo F)Acc No.[id number]:01/10/2025 Progress Note Patient: Sarah FRYE Provider: Savanah Tan DPM :1940 A ge:84 Y S ex:Female Date:01/10/2025 Address:[address] [place], [place] [id number] Pcp:Nehemiah Whyte MD Subjective: * Chief Complaints: [...] 0 01/10/2025 Generated for Printi ng/Faxing/eTransmitting on: 12:09 PM EDT
[2025-03-01 10:40] VITALS: BP 137/75; PULSE 76; RESP 16; TEMP 36; O2SAT 95; BMI 22.1
--- NOTE | 2025-03-01 10:40 | MHC.PC.OV ---
Vital Signs 03/01/25 10:40 Height 4 ft 9.48 in Weight 104 lb BMI 22.1 BP 137/75 Respiration 16 Pulse 76 Pulse Source Pulse Oximeter Temp 96.8 F Temp Source Temporal Artery Scan Pulse Oximetry (%) 95 Oxygen Delivery Method Room Air Intake Visit Reasons: physical Scheduler Conveyor Required: No Accompanied by: self Allergies No Known Allergies Allergy (Verified 03/01/25 13:30) Medication List - Last Reconciled 03/01/25 by Karlee Campa PA-C amlodipine 10 mg PO DAILY fluticasone propionate 50 mcg/actuation sprays intranasal furosemide 20 mg PO DAILY ibuprofen 800 mg PO TID lidocaine 5% 1 patch topical DAILY lisinopril 10 mg PO DAILY methylphenidate HCl 10 mg PO DAILY 30 days metoprolol succinate ER 50 mg PO DAILY multivitamin 1 tab PO DAILY omeprazole 20 mg PO DAILY [Thigh high compression stocking 30/40mmHG] tramadol 50 mg PO DAILY PRN Tobacco use date assessed: 03/01/25 Dental Screening Dental Screen Date: 01/31/25 HPI physical HPI Details The patient is an 84-year-old female presenting for a physical examination and medication review. Hypertension management has been adjusted due to previous high readings, with a current prescription of 10 mg once daily, correcting an earlier error of 5 mg. Environmental factors are noted to influence blood pressure, and the patient is on multiple antihypertensive medications. The patient is prediabetic with a hemoglobin A1c of 5.6, requiring dietary changes to lower sugar intake. Osteoarthritis is managed with tramadol, used two to three times weekly for arthritis-related morning stiffness. The patient has undergone knee and hip surgeries, which were unsuccessful, resulting in chronic pain management with tramadol. Leg swelling is managed with Lasix, and a chest x-ray was ordered but not completed. Preventative care includes a mammogram and bone density scan, with the patient declining a colonoscopy due to age. Social History - Family Status: The patient has three grown children, grandchildren, and great-grandchildren. - Employment: The patient is involved in a [employer] business. [facility] Medical History (Updated 03/01/25 @ 13:35 by Karlee Campa PA-C) Preventative health care Osteoarthritis Prediabetes Annual physical exam Pedal edema Chronic back pain Osteoarthritis of right knee Rotator cuff tear Melanoma Arthritis Low back pain Carpal tunnel syndrome of left wrist ADHD GERD (gastroesophageal reflux disease) HTN (hypertension) Surgical History History of hip replacement History of carpal tunnel release History of appendectomy History of total left hip replacement Family History Father Circulation problem Mother No problems noted. Social History Housing: House Are you a primary residential child care counselor to a significant other at home: No Do you presently have visiting nurse or other home services: No Alcohol intake: current Alcohol intake frequency: a few times a week Patient Tobacco Use Status: Never used Tobacco service: No Current occupational status: retired Cognitive needs: Yes (cane) Hearing needs: No Vision needs: Yes (rx glasses) Questionnaire PHQ-9 Over the last 2 weeks, how often have you been bothered by any of the following problems? 1. Little interest or pleasure in doing things: not at all 2. Feeling down, depressed, or hopeless: not at all 3. Trouble falling or staying asleep, or sleeping too much: not at all 4. Feeling tired or having little energy: not at all 5. Poor appetite or overeating: not at all 6. Feeling bad about yourself - or that you are a failure or have let yourself or your family down: not at all 7. Trouble concentrating on things, such as reading the newspaper or watching television: not at all 8. Moving or speaking so slowly that other people could have noticed. Or the opposite - being so fidgety or restless that you have been moving around a lot more than usual: not at all 9. Thoughts that you would be better off or of hurting yourself in some way: not at all Total score: 0 Depression Screening Interpretation: Negative Depression Screening Done: Yes 10691 - PHQ-9 Billing: Yes Source: Developed by Drs. David Paz, Chelita Erazo, Garrett Valladares and colleagues, with an educational maye from [employer]. Thrive Questionnaire Date Thrive assessed: 01/31/25 I am a: Patient What is your living situation today?: I have a steady place to live Within the past 12 months, did the food you bought not last and you didn't have the money to get more?: Never true Within the past 12 months, did you worry whether your food would run out before you got money to buy more?: Never true Do you have trouble paying for medicines?: No Do you have trouble getting transportation to medical appointments?: No Do you have trouble paying your heating and electricity bill?: No Do you have trouble taking care of your child, family member or friend?: No Do you have trouble with day-to-day activities such as bathing, preparing meals, shopping, managing finances, etc.?: No Are you currently unemployed and looking for a job?: No Are you interested in more education?: No Please select the resources that you would like help with: None THRIVE Score: 0 AUDIT C Alcohol Use Questionnaire (AUDIT-C) 1. How often do you have a drink containing alcohol?: 2-3 times a week 2. How many drinks containing alcohol do you have on a typical day when you are drinking?: 1 or 2 3. How often do you have six or more drinks on one occasion?: Never Total Score: 3 Score Reviewed/Action Taken: No JAC-7 AMB Questionnaire JAC-7 Date JAC - 7 assessed: 01/31/25 Feeling nervous, anxious, or on edge: 0 = Not at all Not being able to stop or control worryin = Not at all Worrying too much about different things: 0 = Not at all Trouble relaxin = Not at all Being so restless that it is hard to sit still: 0 = Not at all Becoming easily annoyed or irritable: 0 = Not at all Feeling afraid as if something awful might happen: 0 = Not at all Total JAC-7 score (0-4 normal; 5-9 mild; 10-14 moderate; 15-21 severe): 0 Source: Developed by Drs. David Paz, Chelita Erazo, Garrett Valladares and colleagues, with an educational maye from [employer]. JAC-7 Assessment Billing JAC-7 Assessment Tool: JAC-7 Assessment 97672 Review of Systems Const Details: - Cardiovascular: Denies chest pain or palpitations. - Respiratory: Denies dyspnea or cough. - Gastrointestinal: Denies abdominal pain, black or bloody stools. - Musculoskeletal: Reports stiffness in the morning due to arthritis. - Neurological: Denies dizziness or balance issues. All systems reviewed & are unremarkable except as noted in HPI and below Physical exam (Primary Care) Vital Signs: Last Vital Signs Temp 96.8 F 03/01/25 10:40 Pulse 76 03/01/25 10:40 Resp 16 03/01/25 10:40 BP 137/75 03/01/25 10:40 Pulse Ox 95 03/01/25 10:40 Oxygen Delivery Method Room Air 03/01/25 10:40 Care Plan Goal for BP management: <140/90 at Goal BMI result Body Mass Index 22.1 normal bmi Tobacco/Smoking Status: Tobacco use Status Tobacco use date assessed 03/01/25 03/01/25 10:48 Patient Tobacco Use Status Never used Tobacco 03/01/25 10:48 PHQ-9: PHQ-9 Score PHQ-9: Total score 0 03/01/25 10:48 Depression Screening Interpretation: Negative Thrive Assessment: Date of Thrive Assessment Date Thrive assessed 01/31/25 03/01/25 10:48 Const Other: Appearance: Alert. Oriented X3. No acute distress. Head: Normal external exam. Normocephalic. Atraumatic. Eyes: Pupils are equal, round, and reactive to light. Extraocular movements intact. Conjunctiva and sclera normal. Eyelids normal. Ears: External auditory canal normal. Tympanic membranes normal. Throat: Pharynx normal. Uvula midline. Moist mucous membranes. Neck: Normal inspection. Neck supple. Full range of motion. No adenopathy. Thyroid Normal. No meningeal signs. No neck mass noted. Cardiovascular: Normal heart rate and rhythm. Heart sound normal. No murmurs noted. Pulses normal throughout. Respiratory: No respiratory distress. Painless inspiration. Breath sounds normal. No wheezes/rales/rhonchi noted. Chest nontender. No accessory muscle usage noted or decreased air movement noted. Abdomen: Soft and nontender. Bowel sounds normal in all 4 quadrants. No distention noted. No organomegaly noted. No visible injury noted. Back: No costovertebral angle tenderness. Full range of motion noted. Skin: Skin warm and dry. Normal skin color. Normal skin turgor. No rashes/lesions/lacerations noted. Extremities: No lower extremity edema. Extremities exhibit normal range of motion. Extremities nontender. Neuro: Oriented X 3. No motor deficit. No sensory deficit. Reflexes normal. Results Reviewed Results Reviewed: - Labs: CBC normal, hemoglobin A1c 5.6 indicating prediabetes, cholesterol normal, vitamin D normal. - Tests: Drug urine screen normal. Coding Level of Care Code Est Pt Level 4 (01525) Est Pt Prev Care 40-64y(11710) Diagnoses Annual physical exam Z00.00 HTN (hypertension) I10 Prediabetes R73.03 Osteoarthritis M19.90 Pedal edema R60.0 Preventative health care Z00.00 Additional Codes JAC-7 Assessment Billing - JAC-7 Assessment Tool: JAC-7 Assessment 13896 ([id number]) PHQ-9 - 37964 - PHQ-9 Billing: Yes ([id number]) Time Spent (min) 50 Assessment & Plan Assessment & Plan (1) Annual physical exam: Code(s): Z00.00 - Encounter for general adult medical examination without abnormal findings Category: Medical (2) HTN (hypertension): Code(s): I10 - Essential (primary) hypertension Category: Medical Plan: The patient's hypertension management was adjusted to 10 mg once daily due to previous high readings and an initial prescription error. Environmental factors are noted to influence blood pressure, and the patient is on multiple antihypertensive medications including amlodipine, metoprolol, furosemide, and lisinopril. Condition is chronic and stable continue to monitor. (3) Prediabetes: Code(s): R73.03 - Prediabetes Category: Medical Plan: The patient is advised to modify her diet to reduce sugar intake due to a hemoglobin A1c of 5.6, indicating a prediabetic state. (4) Osteoarthritis: Code(s): M19.90 - Unspecified osteoarthritis, unspecified site Category: Medical Plan: Osteoarthritis is managed with tramadol, taken two to three times weekly for morning stiffness, with a history of unsuccessful knee and hip surgeries contributing to chronic pain. (5) Pedal edema: Code(s): R60.0 - Localized edema Category: Medical Plan: Leg swelling is managed with Lasix, which has been effective, and a chest x-ray was ordered but not yet completed. (6) Preventative health care: Code(s): Z00.00 - Encounter for general adult medical examination without abnormal findings Category: Medical Plan: Preventative care measures include scheduling a mammogram and bone density scan, with the patient opting out of a colonoscopy due to age. Plan Plan Patient was informed and verbally consented to the use of an ambient scribe for clinic note documentation during this visit. 1. Hypertension The patient's hypertension management was adjusted to 10 mg once daily due to previous high readings and an initial prescription error. Environmental factors are noted to influence blood pressure, and the patient is on multiple antihypertensive medications including amlodipine, metoprolol, furosemide, and lisinopril. 2. Prediabetes The patient is advised to modify her diet to reduce sugar intake due to a hemoglobin A1c of 5.6, indicating a prediabetic state. 3. Osteoarthritis Osteoarthritis is managed with tramadol, taken two to three times weekly for morning stiffness, with a history of unsuccessful knee and hip surgeries contributing to chronic pain. 4. Leg Swelling Leg swelling is managed with Lasix, which has been effective, and a chest x-ray was ordered but not yet completed. 5. Preventative Care Preventative care measures include scheduling a mammogram and bone density scan, with the patient opting out of a colonoscopy due to age. During the visit, we discussed the adjustment of hypertension medication to 10 mg once daily due to previous high readings and an initial prescription error. The patient was advised to modify her diet to reduce sugar intake due to a prediabetic state. We also reviewed the management of osteoarthritis with tramadol and the effectiveness of Lasix for leg swelling. Preventative care measures, including scheduling a mammogram and bone density scan, were discussed, with the patient opting out of a colonoscopy due to age. Medications: New metoprolol succinate ER 50 mg PO DAILY 90 tabs 3RF Changed From methylphenidate HCl Partial Fill upon patient request. 5 mg PO DAILY 30 tabs 0RF 30 days To methylphenidate HCl Partial Fill upon patient request. 10 mg PO DAILY 30 tabs 0RF 30 days From tramadol 50 mg PO TID PRN To tramadol 50 mg PO DAILY PRN 30 tabs 0RF pain Patient Instructions: - Take hypertension medication as prescribed: 10 mg once daily. - Modify diet to reduce sugar intake to manage prediabetes. - Use tramadol as needed for arthritis-related pain, not exceeding prescribed frequency. - Continue Lasix for leg swelling and complete chest x-ray when possible. - Schedule and attend mammogram and bone density scan appointments.
--- OUTSIDE RECORDS SUMMARY | 2025-03-01 12:10 | XMS_ITS | Patient Health Record ---
Author Organization [facility] [place] Address [address] [place] [address] Care Team Providers Care Audio Technician Name Role Phone Nehemiah Whyte MD Primary Care Provider Unavailab Helena Bejarano Unavailable [phone] Ethan Myers Unavailable [phone] Allergies No Known Allergies Reason For Referral [...] atherosclerosis of arteries of lower limbs (disorder) ([id number] ) Atherosclerosis of [place] artery of both lower extremities, with unspecified presence of clinical manifestation (I70.203) Active confirmed Q7(A), Q8(2B), Q9(1B,2 C) Vital Signs Blood pressure diastolic 74 mm Hg 09/20/2024 Height 5 ft in 09/20/2024 Blood pressure systolic 132 mm Hg 09/20/2024 Weight 100 lbs 09/20/2024 BMI 19.53 kg/m2 09/20/2024 Procedures Procedure Date Ordered Date Performed Result Body Sit e 26925-QRSZGXQ NAIL, 6 OR MORE 05/13/2024 N/A 91005-TBJW SKIN LESIONS, OVER 4 05/13/2024 N/A 61135-AURDVOO NAIL, 6 OR MORE 09/20/2024 N/A 15969-PBSB SKIN LESIONS, OVER 4 09/20/2024 N/A Encounters Encounter Location Date Provider Diagnosis [address] [address] 05/13/2024 Helena Tan Atherosclerosis of [place] artery of both lower extremities, with unspecified presence of clinical manifestation I70.203 ; Tinea unguium B35.1 ; Pain in right toe(s) M79.674 and Pain in left toe(s) M79.[address] [address] 09/20/2024 Helena Tan Atherosclerosis of [place] artery of both lower extremities, with unspecified presence of clinical manifestation I70.203 ; Tinea unguium B35.1 ; Pain in right toe(s) M79.674 and Pain in left toe(s) M79.[address] [address] 10/31/2024 Helena Tan [address] [address] 12/20/2024 Helena Tan [address] [address] 01/09/2025 Helena Tan Assessments Encounter Date Diagnosis (ICD Code) Assessment Notes Treatment Notes Treatment Clinical Notes Section Notes 05/13/2024 Atherosclerosis of [place] artery of both lower extremities, with unspecified presence of clinical manifestation (ICD-10 - I70.203) Q7(A), Q8(2B), Q9(1B,2C) 09/20/2024 Atherosclerosis of [place] artery of both lower extremities, with unspecified [...] Treatment Pending Test Test Name Order Date 79820-UBLEWDM NAIL, 6 OR MORE 06/12/2015 59819-RGGSBFT NAIL, 6 OR MORE 05/13/2024 79832-YLLNORR NAIL, 6 OR MORE 09/20/2024 97822-WQVY SKIN LESIONS, OVER 4 09/21/19 25 87671-YFDE SKIN LESIONS, OVER 4 05/13/20 24 80104-TJJV SKIN LESIONS, 2 TO 4 03/19/20 21 18265-YIOL SKIN LESIONS, 2 TO 4 06/18/19 22 Insurance Providers Payer Name Payer Address Payer Phone Subscriber Number Group Number Insured Name Patient Relationship to Insured Coverage Start Date Coverage End Date [employer] Medicare [id number] [address] [address] [place] [address] [id number] Sarah Yeung Self - patient is the insured Medical (General) History Medical History History ICD Code Osteoporosis Polio Back,Hip,and Knee pain Measles Mumps Chicken pox Surgical History Surgery Date(Month/Year) carpal tunnel surgery hip replacement tubal ligation appendectomy right knee replacement 01/15/2021
--- OUTSIDE RECORDS SUMMARY | 2025-03-01 12:10 | XMS_ITS ---
Author Organization [facility] Support Name Relationship Address Phone Litzy Haddad Personal Relationship [address] [place] [address] Mental Status Section Date Assessment Total Score Description 04/15/2015 BIMS 15 cognitively int act PHQ-9 00 Problems Problem # Description Date of onset Resolved Date Code CodeSystem Concern Status 1 AFTERCARE FOLLOWING JOINT REPLACEMENT SURGERY 04/13/[address] active 2 AGE-RELATED OSTEOPOROSIS WITHOUT CURRENT PATHOLOGICAL FRACTURE 04/13/[address] active 3 ATTENTION-DEFICIT HYPERACTIVITY DISORDER, PREDOMINANTLY HYPERACTIVE TYPE 04/13/[address] active 4 UNILATERAL PRIMARY OSTEOARTHRITIS, LEFT HIP 04/13/[address] active Reason for Referral No Reasons for Referral Entered Social History Social History Observation Description Start Date End Date Code Code System Current Smoking Status Tobacco smoking consumption unknown 037115646 SNOMED CT Sex Assigned At Female 1940 [address]0 [facility] Gender Identity Sexual Orientation Vital Signs Code Code System Vitals Name Values and Units Timing Information 8867-4 LOINC Heart rate Value=78.0 Units=/min 8462-4 LOINC Blood Pressure-Diastolic Value=68 Un its=mmHg 04/14/2015 8480-6 LOINC Blood Pressure-Systolic Hjesy=567 Un its=mmHg 04/14/2015 32415-5 LOINC Weight Pions=978.0 Units=Lbs
== END 2025-03-01 11:12 | disposition home or self-care (01) ==
LOC: HO.HMCSH 10:33
PROVIDERS: PCP Physician Assistant Medical; Visit Provider Physician Assistant Medical
DX: Z00.00 Encounter for general adult medical examination without abnormal findings (principal); I10 Essential (primary) hypertension; R73.03 Prediabetes; M19.90 Unspecified osteoarthritis, unspecified site; R60.0 Localized edema

== ENCOUNTER → 2025-03-01 10:33 | Outpatient (BNVA) | payer MEDICARE, SELFPAY | PROVIDERS: PCP Physician Assistant Medical; Visit Provider Physician Assistant Medical | DX: Z00.00 Encounter for general adult medical examination without abnormal findings (principal); I10 Essential (primary) hypertension; R73.03 Prediabetes; G89.29 Other chronic pain; M19.90 Unspecified osteoarthritis, unspecified site; R60.0 Localized edema; Z79.899 Other long term (current) drug therapy | CPT/HCPCS: 96127; 99397 ==

== ENCOUNTER 2025-03-16 10:29 | Outpatient (REF) | payer MEDICARE, SELFPAY ==
--- OUTSIDE RECORDS SUMMARY | 2023-11-24 07:15 | XMS_ITS ---
Author Organization [facility] Address [address] [place] [address] Care Team Providers Care Grad Intern Name Role Phone Nehemiah Whyte MD Primary Care Provider Unavailab Helena Bejarano Unavailable [phone] Ethan Medina Unavailable [phone] Simon Encounters Encounter Location Date [facility] [address] [place] [address] 11/24/2023 Ethan Medina Plan Of Treatment No Information Progress Notes * Rodolfo YEUNGMadalyn:1940 ( 84 yo F)Acc No.[id number]:11/24/2023 Progress Note Patient: Sarah FRYE Provider: Lani Myers DPM :1940 A ge:83 Y S ex:Female Date:11/24/2023 Address:[address] [place], [place] [id number] Pcp:Nehemiah Whyte MD Subjective: * Chief Complaints: [...] 11/24/2023 Generated for Printi ng/Faxing/eTransmitting on: 1 12:58 PM EDT
--- OUTSIDE RECORDS SUMMARY | 2024-04-05 06:00 | XMS_ITS ---
Author Organization [facility] Address [address] [place] [address] Care Team Providers Care Lithographic Press Operator Apprentice Name Role Phone Nehemiah Whyte MD Primary Care Provider Unavailab Helena Bejarano [phone] REASON FOR VISIT Transfer to Different Provider Encounters Encounter Location Date Provider Diagnosis [address] [address] 04/05/2024 Helena Tan Plan Of Treatment No Information Progress Notes * Rodolfo YEUNGB:1940 ( 84 yo F)Acc No.[id number]:04/05/2024 Progress Note Patient: Sarah FRYE Provider: Savanah Tan DPM :1940 A ge:83 Y S ex:Female Date:04/05/2024 Address:[address] [place], [place] [phone] Pcp:Nehemiah Whyte MD Subjective: * Chief Complaints: [...] Tan DPM Date: 06/05/2023 Generated for Printi ng/Faxing/eTransmitting on: 12:58 PM EDT
--- OUTSIDE RECORDS SUMMARY | 2024-04-05 06:00 | XMS_ITS ---
Author Organization [facility] Address [address] [place] [address] Care Team Providers Care Cotton Farmworker Name Role Phone Nehemiah Whyte MD Primary Care Provider Unavailab Helena Bejarano Unavailable [phone] Etahn Medina Unavailable [phone] REASON FOR VISIT Transfer to Different Provider Encounters Encounter Location Date Provider [facility] [address] [place] [address] 04/05/2024 Ethan Medina Plan Of Treatment No Information Progress Notes * Rodolfo YEUNGB:1940 ( 84 yo F)Acc No.[id number]:04/05/2024 Progress Note Patient: Sarah FRYE Provider: Lani Myers DPM :1940 A ge:83 Y S ex:Female Date:04/05/2024 Address:[address] [place], [place] [phone] Pcp:Nehemiah Whyte MD Subjective: * Chief Complaints: [...] 06/05/2023 Generated for Printi ng/Faxing/eTransmitting on: 1 12:58 PM EDT
--- OUTSIDE RECORDS SUMMARY | 2024-12-20 11:15 | XMS_ITS ---
Author Organization [facility] Address [address] [place] [address] Care Team Providers Care Shoulder Joiner Name Role Phone Nehemiah Whyte MD Primary Care Provider Unavailab Helena Bejarano [phone] Encounters Encounter [facility] [address] 12/20/2024 Helena Tan Plan Of Treatment No Information Progress Notes * Luly YEUNGLiliyaB:1940 ( 84 yo F)Acc No.[id number]:12/20/2024 Progress Note Patient: Sarah FRYE Provider: Savanah Tan DPM :1940 A ge:84 Y S ex:Female Date:12/20/2024 Address:[address] [place], [place] [phone] Pcp:Nehemiah Whyte MD Subjective: * Chief Complaints: [...] 0 12/20/2024 Generated for Printi ng/Faxing/eTransmitting on: 1 12:58 PM EDT
--- OUTSIDE RECORDS SUMMARY | 2025-01-10 07:00 | XMS_ITS ---
Author Organization [facility] Address [address] [facility] [place] [address] Care Team Providers Care Hospital Carrier Name Role Phone Nehemiah Whyte MD Primary Care Provider Unavailab Helena Bejarano [phone] Encounters Encounter [facility] Date [facility] [address] 01/10/2025 Helena Tan Plan Of Treatment No Information Progress Notes * Luly YEUNGLiliyaB:1940 ( 84 yo F)Acc No.[id number]:01/10/2025 Progress Note Patient: Sarah FRYE Provider: Savanah Tan DPM :1940 A ge:84 Y S ex:Female Date:01/10/2025 Address:[address] [place], [place] [phone] Pcp:Nehemiah Whyte MD Subjective: * Chief Complaints: [...] 0 01/10/2025 Generated for Printi ng/Faxing/eTransmitting on: 1 12:58 PM EDT
--- NOTE | ~2025-03-16 | US_ITS ---
EXAMINATION: US TRIPLEX LOWER EXTREMITY, BILATERAL CLINICAL INFORMATION: Edema COMPARISON: None available. TECHNIQUE: Color-flow triplex imaging with spectral analysis and compression Doppler were performed on the bilateral lower extremities. FINDINGS: Respiratory variation, normal compression and augmented flow are noted throughout the bilateral lower extremities. The visualized common femoral vein, superficial femoral vein, profunda femoral vein, popliteal vein and midcalf peroneal and posterior tibial venous segments show no evidence of deep venous thrombosis bilaterally. There is no Kothari's cyst. US/US venous duplex LE BI IMPRESSION: No evidence of deep venous thrombosis involving the bilateral lower extremities. Electronically signed by: Edgar Burger MD 03/16/2025 11:32 AM EDT
--- OUTSIDE RECORDS SUMMARY | 2025-03-16 12:59 | XMS_ITS | Patient Health Record ---
Author Organization [facility] [place] Address [address] [place] [address] Care Team Providers Care See Supervisor Name Role Phone Nehemiah Whyte MD Primary Care Provider Unavailab Helena Bejarano Unavailable [phone] Ethan Medina Unavailable [phone] Allergies No Known Allergies Reason For Referral [...] atherosclerosis of arteries of lower limbs (disorder) ([id number] ) Atherosclerosis of [place] artery of both lower extremities, with unspecified presence of clinical manifestation (I70.203) Active confirmed Q7(A), Q8(2B), Q9(1B,2 C) Vital Signs Blood pressure diastolic 74 mm Hg 09/20/2024 Height 5 ft in 09/20/2024 Blood pressure systolic 132 mm Hg 09/20/2024 Weight 100 lbs 09/20/2024 BMI 19.53 kg/m2 09/20/2024 Procedures Procedure Date Ordered Date Performed Result Body Sit e 97919-XBLZHEB NAIL, 6 OR MORE 05/13/2024 N/A 95398-KOHX SKIN LESIONS, OVER 4 05/13/2024 N/A 97109-EKTOSIM NAIL, 6 OR MORE 09/20/2024 N/A 70240-SEFZ SKIN LESIONS, OVER 4 09/20/2024 N/A Encounters Encounter Location Date Provider Diagnosis [address] [address] 05/13/2024 Helena Tan Atherosclerosis of [place] artery of both lower extremities, with unspecified presence of clinical manifestation I70.203 ; Tinea unguium B35.1 ; Pain in right toe(s) M79.674 and Pain in left toe(s) M79.[address] [address] 09/20/2024 Helena Tan Atherosclerosis of [place] artery of both lower extremities, with unspecified presence of clinical manifestation I70.203 ; Tinea unguium B35.1 ; Pain in right toe(s) M79.674 and Pain in left toe(s) M79.[address] [address] 10/31/2024 Helena Tan [address] [address] 12/20/2024 Helena Tan [address] [address] 01/09/2025 Helena Tan Assessments Encounter Date Diagnosis (ICD Code) Assessment Notes Treatment Notes Treatment Clinical Notes Section Notes 05/13/2024 Atherosclerosis of [place] artery of both lower extremities, with unspecified presence of clinical manifestation (ICD-10 - I70.203) Q7(A), Q8(2B), Q9(1B,2C) 09/20/2024 Atherosclerosis of [place] artery of both lower extremities, with unspecified [...] Treatment Pending Test Test Name Order Date 69153-MZNJQFT NAIL, 6 OR MORE 06/12/2015 56360-DZXCVKI NAIL, 6 OR MORE 05/13/2024 43296-MMSBZDO NAIL, 6 OR MORE 09/20/2024 82177-BKMG SKIN LESIONS, OVER 4 09/21/19 25 93807-DBSZ SKIN LESIONS, OVER 4 05/13/20 24 76113-NSEI SKIN LESIONS, 2 TO 4 03/19/20 21 62357-EOHN SKIN LESIONS, 2 TO 4 06/18/19 22 Insurance Providers Payer Name Payer Address Payer Phone Subscriber Number Group Number Insured Name Patient Relationship to Insured Coverage Start Date Coverage End Date [employer] Medicare [id number] [address] [address] [place] [address] [id number] Sarah Yeung Self - patient is the insured Medical (General) History Medical History History ICD Code Osteoporosis Polio Back,Hip,and Knee pain Measles Mumps Chicken pox Surgical History Surgery Date(Month/Year) carpal tunnel surgery hip replacement tubal ligation appendectomy right knee replacement 01/15/2021
== END 2025-03-16 10:30 | disposition home or self-care (01) ==
LOC: HO.US 10:29
PROVIDERS: PCP Physician Assistant Medical; Visit Provider Physician Assistant Medical
DX: R60.0 Localized edema (principal)
CPT/HCPCS: 93970

== ENCOUNTER → 2025-03-16 10:31 | Outpatient (BNV) | payer MEDICARE, SELFPAY | PROVIDERS: PCP Physician Assistant Medical; Visit Provider Radiology Diagnostic Ultrasound | DX: R60.0 Localized edema (principal) | CPT/HCPCS: 93970 ==

== ENCOUNTER 2025-04-05 10:33 | Outpatient (AMB) | payer MEDICARE, SELFPAY ==
--- OUTSIDE RECORDS SUMMARY | 2023-11-24 06:15 | XMS_ITS ---
Author Organization [facility] Address [address] [place] [address] Care Team Providers Care Welding Equipment Sales Representative Name Role Phone Nehemiah Whyte MD Primary Care Provider Unavailab Helena Bejarano Unavailable [phone] Ethan Medina Unavailable [phone] Simon Encounters Encounter Location Date [facility] [address] [place] [phone] 11/24/2023 Ethan Medina Plan Of Treatment No Information Progress Notes * Rodolfo YEUNGMadalyn:1940 ( 84 yo F)Acc No.[id number]:11/24/2023 Progress Note Patient: Sarah FRYE Provider: Lani Myers DPM :1940 A ge:83 Y S ex:Female Date:11/24/2023 Address:[address] [place], [place] [id number] Pcp:Nehemiah Whyte MD Subjective: * Chief Complaints: * [address] Simon. * Medical History: Objective: * Vitals: Assessment: Plan: * Treatment: * Images: * The named appointment provid er may or may not be the originator of this progress note, and it is not deemed complete until electronically signed by the appointment provider. Sign off status: Pending * Provider: Lani Myers DPM Date: 0 11/24/2023 Generated for Printi ng/Faxing/eTransmitting on: 1 06/05/2024 12:18 PM EST
--- OUTSIDE RECORDS SUMMARY | 2024-04-05 05:00 | XMS_ITS ---
Author Organization [facility] Address [address] [place] [address] Care Team Providers Care Spindraw Operator Name Role Phone Nehemiah Whyte MD Primary Care Provider Unavailab Helena Bejarano [phone] REASON FOR VISIT Transfer to Different Provider Encounters Encounter Location Date Provider Diagnosis [address] [address] 04/05/2024 Helena Tan Plan Of Treatment No Information Progress Notes * Rodolfo YEUNGB:1940 ( 84 yo F)Acc No.[id number]:04/05/2024 Progress Note Patient: Sarah FRYE Provider: Savanah Tan DPM :1940 A ge:83 Y S ex:Female Date:04/05/2024 Address:[address] [place], [place] [id number] Pcp:Nehemiah Whyte MD Subjective: * Chief Complaints: * 1 . Transfer to Different Provider. * Medical History: Objective: * Vitals: Assessment: Plan: * Treatment: * Images: * The named appointment provid er may or may not be the originator of this progress note, and it is not deemed complete until electronically signed by the appointment provider. Sign off status: Pending * Provider: Savanah Tan DPM Date: 06/05/2023 Generated for Printi ng/Fabenedictg/eTransmitting on: 06/05/2024 12:18 PM EST
--- OUTSIDE RECORDS SUMMARY | 2024-04-05 05:00 | XMS_ITS ---
Author Organization [facility] Address [address] [place] [address] Care Team Providers Care Veneer Patcher Name Role Phone Nehemiah Whyte MD Primary Care Provider Unavailab Helena Bejarano Unavailable [phone] Ethan Medina Unavailable [phone] REASON FOR VISIT Transfer to Different Provider Encounters Encounter Location Date Provider [facility] [address] [place] [address] 04/05/2024 Ethan Medina Plan Of Treatment No Information Progress Notes * Rodolfo YEUNGMadalyn:1940 ( 84 yo F)Acc No.[id number]:04/05/2024 Progress Note Patient: Sarah FRYE Provider: Lani Myres DPM :1940 A ge:83 Y S ex:Female Date:04/05/2024 Address:[address] [place], [place] [phone] Pcp:Nehemiah Whyte MD Subjective: * Chief Complaints: [...] Pending * Provider: Lani Myers DPM Date: 06/05/2023 Generated for Printi ng/Faxing/eTransmitting on: 1 06/05/2024 12:18 PM EST
--- OUTSIDE RECORDS SUMMARY | 2024-12-20 10:15 | XMS_ITS ---
Author Organization [facility] Address [address] [facility] [place] [address] Care Team Providers Care Erp Programmer Name Role Phone Nehemiah Whyte MD Primary Care Provider Unavailab Helena Bejarano [phone] Encounters Encounter [facility] [address] 12/20/2024 Helena Tan Plan Of Treatment No Information Progress Notes * Luly YEUNGLiliyaB:1940 ( 84 yo F)Acc No.[id number]:12/20/2024 Progress Note Patient: Sarah FRYE Provider: Savanah Tan DPM :1940 A ge:84 Y S ex:Female Date:12/20/2024 Address:[address] [place], [place] [phone] Pcp:Nehemiah Whyte MD Subjective: * Chief Complaints: * * Medical History: Objective: * Vitals: Assessment: Plan: * Treatment: * Images: * The named appointment provid er may or may not be the originator of this progress note, and it is not deemed complete until electronically signed by the appointment provider. Sign off status: Pending * Provider: Savanah Tan DPM Date: 0 12/20/2024 Generated for Printi ng/Faxing/eTransmitting on: 06/05/2024 12:18 PM EST
--- OUTSIDE RECORDS SUMMARY | 2025-01-10 06:00 | XMS_ITS ---
Author Organization [facility] Address [address] [place] [address] Care Team Providers Care Research Associate Policy Name Role Phone Nehemiah Whyte MD Primary Care Provider Unavailab Helena Bejarano [phone] Encounters Encounter Location Date [facility] [address] 01/10/2025 Helena Tan Plan Of Treatment No Information Progress Notes * Luly YEUNGLiliyaB:1940 ( 84 yo F)Acc No.[id number]:01/10/2025 Progress Note Patient: Sarah FRYE Provider: Savanah Tan DPM :1940 A ge:84 Y S ex:Female Date:01/10/2025 Address:[address] [place], [place] [phone] Pcp:Nehemiah Whyte MD Subjective: * Chief Complaints: * * Medical History: Objective: * Vitals: Assessment: Plan: * Treatment: * Images: * The named appointment provid er may or may not be the originator of this progress note, and it is not deemed complete until electronically signed by the appointment provider. Sign off status: Pending * Provider: Savanah Tan DPM Date: 0 01/10/2025 Generated for Printi ng/Faxing/eTransmitting on: 06/05/2024 12:18 PM EST
--- NOTE | 2025-04-05 10:36 | A.OFFPC_ITS ---
Vital Signs 04/05/25 10:37 Height 4 ft 9.48 in Weight 104 lb BMI 22.1 BP 109/58 L Blood Pressure Location Rt brachial Position Sitting Respiration 14 Pulse 88 Pulse Source Pulse Oximeter Temp 97.9 F Temp Source Temporal Artery Scan Pulse Oximetry (%) 97 Oxygen Delivery Method Room Air Intake Visit Reasons: 1 Month follow up Pipe Fitter Maintenance Required: No Accompanied by: Self / Same As Patient Allergies No Known Allergies Allergy (Verified 04/05/25 12:29) Medication List - Last Reconciled 04/05/25 by Karlee Campa PA-C amlodipine 5 mg PO DAILY fluticasone propionate 50 mcg/actuation 2 sprays intranasal DAILY furosemide 40 mg PO DAILY ibuprofen 800 mg PO TID lidocaine 5% 1 patch topical DAILY lisinopril 10 mg PO DAILY methylphenidate HCl 10 mg PO DAILY 30 days metoprolol succinate ER 50 mg PO DAILY multivitamin 1 tab PO DAILY omeprazole 20 mg PO DAILY [Thigh high compression stocking 30/40mmHG] tramadol 50 mg PO DAILY PRN Tobacco use date assessed: 03/01/25 Dental Screening Dental Screen Date: 01/31/25 HPI 1 Month follow up HPI Details The patient is an 84-year-old female presenting for management of chronic conditions. She has a history of hypertension, with past readings of 120/70 mmHg in January and 137/75 mmHg in March, and is currently taking amlodipine. The patient also has peripheral edema, for which she recently doubled her furosemide (Lasix) dose to 40 mg once daily. She reports the leg swelling has gone down quite a bit with the extra Lasix, though it is not completely resolved. A prior ultrasound of the leg was normal. The patient has a history of polio from 1956 and wonders if her current symptoms of arthritis in her back, difficulty walking, fatigue, and muscle and joint pain could be related to post-polio syndrome. She uses a cane as needed. Social History - The patient rescues and cares for cats . REPLACED BY [facility] Medical History (Updated 04/05/25 @ 12:32 by Karlee Campa PA-C) Healthcare maintenance Allergic rhinitis Post-polio syndrome Peripheral edema Preventative health care Osteoarthritis Prediabetes Annual physical exam Pedal edema Chronic back pain Osteoarthritis of right knee Rotator cuff tear Melanoma Arthritis Low back pain Carpal tunnel syndrome of left wrist ADHD GERD (gastroesophageal reflux disease) HTN (hypertension) Surgical History History of hip replacement History of carpal tunnel release History of appendectomy History of total left hip replacement Family History Father Circulation problem Mother No problems noted. Social History Housing: House Are you a primary child care center assistant director to a significant other at home: No Do you presently have visiting nurse or other home services: No Alcohol intake: current Alcohol intake frequency: a few times a week Patient Tobacco Use Status: Never used Tobacco service: No Current occupational status: retired Cognitive needs: Yes (cane) Hearing needs: No Vision needs: Yes (rx glasses) Questionnaire PHQ-9 Over the last 2 weeks, how often have you been bothered by any of the following problems? 1. Little interest or pleasure in doing things: not at all 2. Feeling down, depressed, or hopeless: not at all 3. Trouble falling or staying asleep, or sleeping too much: not at all 4. Feeling tired or having little energy: not at all 5. Poor appetite or overeating: not at all 6. Feeling bad about yourself - or that you are a failure or have let yourself or your family down: not at all 7. Trouble concentrating on things, such as reading the newspaper or watching television: not at all 8. Moving or speaking so slowly that other people could have noticed. Or the opposite - being so fidgety or restless that you have been moving around a lot more than usual: not at all 9. Thoughts that you would be better off or of hurting yourself in some way: not at all Total score: 0 Depression Screening Interpretation: Negative Depression Screening Done: Yes 84464 - PHQ-9 Billing: Yes Source: Developed by Drs. David Paz, Chelita Erazo, Garrett Valladares and colleagues, with an educational maye from [employer]. Thrive Questionnaire Date Thrive assessed: 01/31/25 I am a: Patient What is your living situation today?: I have a steady place to live Within the past 12 months, did the food you bought not last and you didn't have the money to get more?: Never true Within the past 12 months, did you worry whether your food would run out before you got money to buy more?: Never true Do you have trouble paying for medicines?: No Do you have trouble getting transportation to medical appointments?: No Do you have trouble paying your heating and electricity bill?: No Do you have trouble taking care of your child, family member or friend?: No Do you have trouble with day-to-day activities such as bathing, preparing meals, shopping, managing finances, etc.?: No Are you currently unemployed and looking for a job?: No Are you interested in more education?: No Please select the resources that you would like help with: None THRIVE Score: 0 AUDIT C Alcohol Use Questionnaire (AUDIT-C) 1. How often do you have a drink containing alcohol?: 2-3 times a week 2. How many drinks containing alcohol do you have on a typical day when you are drinking?: 1 or 2 3. How often do you have six or more drinks on one occasion?: Never Total Score: 3 Score Reviewed/Action Taken: No JAC-7 AMB Questionnaire JAC-7 Date JAC - 7 assessed: 01/31/25 Feeling nervous, anxious, or on edge: 0 = Not at all Not being able to stop or control worryin = Not at all Worrying too much about different things: 0 = Not at all Trouble relaxin = Not at all Being so restless that it is hard to sit still: 0 = Not at all Becoming easily annoyed or irritable: 0 = Not at all Feeling afraid as if something awful might happen: 0 = Not at all Total JAC-7 score (0-4 normal; 5-9 mild; 10-14 moderate; 15-21 severe): 0 Source: Developed by Drs. David Paz, Chelita Erazo, Garrett Valladares and colleagues, with an educational maye from [employer]. JAC-7 Assessment Billing JAC-7 Assessment Tool: JAC-7 Assessment 80614 Review of Systems Const Details: - Constitutional: Reports fatigue. - Allergic/Immunologic: Reports allergies affecting her eyes. - Cardiovascular: Denies chest pain. - Respiratory: Denies dyspnea and difficulty swallowing. - Musculoskeletal: Reports arthritis in the back, difficulty walking, muscle weakness, and joint pain. - Genitourinary: Reports increased urinary frequency. - Neurological: Denies dizziness. - Extremities: Reports leg swelling that is improving. All systems reviewed & are unremarkable except as noted in HPI and below Physical exam (Primary Care) Vital Signs: Last Vital Signs Temp 97.9 F 04/05/25 10:37 Pulse 88 04/05/25 10:37 Resp 14 04/05/25 10:37 BP 109/58 L 04/05/25 10:37 Pulse Ox 97 04/05/25 10:37 Oxygen Delivery Method Room Air 04/05/25 10:37 Care Plan Goal for BP management: <140/90 at Goal BMI result Body Mass Index 22.1 BMI Assessment/Plan discussion: Low BMI Low, Plan discussed: lifestyle, increase calorie intake, dietary and other Tobacco/Smoking Status: Tobacco use Status Tobacco use date assessed 03/01/25 04/05/25 10:46 Patient Tobacco Use Status Never used Tobacco 04/05/25 10:46 PHQ-9: PHQ-9 Score PHQ-9: Total score 0 04/05/25 11:10 Depression Screening Interpretation: Negative Thrive Assessment: Date of Thrive Assessment Date Thrive assessed 01/31/25 04/05/25 10:46 Const Other: Appearance: Alert. Oriented X3. No acute distress. Head: Normal external exam. Normocephalic. Atraumatic. Eyes: Pupils are equal, round, and reactive to light. Extraocular movements intact. Conjunctiva and sclera normal. Eyelids normal. Throat: Pharynx normal. Uvula midline. Moist mucous membranes. Neck: Normal inspection. Neck supple. Full range of motion. Cardiovascular: Normal heart rate and rhythm. Heart sound normal. No murmurs noted. Pulses normal throughout. Blood pressure is currently 109/58. Respiratory: No respiratory distress. Painless inspiration. Breath sounds normal. No wheezes/rales/rhonchi noted. No accessory muscle usage noted or decreased air movement noted. Back: Full range of motion noted. Skin: Skin warm and dry. Normal skin color. Normal skin turgor. No rashes/lesio ns/lacerations noted. Extremities: Extremities exhibit normal range of motion. Office Procedures Flu Questionnaire Does the patient have a severe egg allergy?: No Does the patient have severe life threatening allergies?: No Does the patient have a fever or illness today?: No Has the patient ever had Guillain-Friona Syndrome?: No Has the patient ever had any past reaction to a flu shot?: No Immunizations Fluarix [id number] (PF) 45 mcg (15 mcg x 3)/0.5 mL IM syringe Performing Provider: Karlee Campa PA-C [place] Administered by: RAUL Rivera on 04/05/25 11:10 Dose Route Admin Location Dispensed Lot Number Expiration Date N[employer] Head 0.5 mL IM Right Deltoid 0.5 mL [id number] 11/28/25 [id number] [employer] VIS Given Date VIS Provided VIS Publication Date 04/05/25 Single Vaccine 24 Eligibility Eligibility Date Funding Source Not [facility] Eligible 04/05/25 Private Results Reviewed Results Reviewed: - Imaging: A prior ultrasound of the leg was normal. Coding Level of Care Code Est Pt Level 4 (59956) Complex EM visit Add On G2211 Diagnoses HTN (hypertension) I10 Peripheral edema R60.9 Post-polio syndrome G14 Arthritis M19.90 Allergic rhinitis J30.9 Healthcare maintenance Z00.00 Additional Codes JAC-7 Assessment Billing - JAC-7 Assessment Tool: JAC-7 Assessment 32605 ([id number]) PHQ-9 - 94377 - PHQ-9 Billing: Yes ([id number]) Assessment & Plan Assessment & Plan (1) HTN (hypertension): Code(s): I10 - Essential (primary) hypertension Category: Medical Plan: The patient's blood pressure was noted to be low at 109/58 mmHg during the visit. Given the low reading, which is likely secondary to her increased dose of furosemide, the amlodipine dose will be decreased from 10 mg to 5 mg daily. The patient was instructed to continue monitoring her blood pressure at home. (2) Peripheral edema: Code(s): R60.9 - Edema, unspecified Category: Medical Plan: The patient's leg swelling has improved with an increased dose of furosemide 40 mg daily. Due to the higher diuretic dose, a chemistry panel including potassium, magnesium, and renal function will be checked, along with a urinalysis to assess for other causes of her increased urinary frequency. She will continue the current dose of furosemide 40 mg once daily. (3) Post-polio syndrome: Code(s): G14 - Postpolio syndrome Category: Medical Plan: The patient's symptoms of muscle weakness, fatigue, and joint pain are consistent with post-polio syndrome, given her history of polio in 1956. Management strategies including physical therapy and use of assistive devices were discussed. (4) Arthritis: Code(s): M19.90 - Unspecified osteoarthritis, unspecified site Category: Medical Plan: The patient's back pain from arthritis is well-managed with tramadol 50 mg once daily. Refills will now be provided for a three-month supply, and she no longer needs to follow up monthly for this prescription. (5) Allergic rhinitis: Code(s): J30.9 - Allergic rhinitis, unspecified Category: Medical Plan: The patient requested refills for her allergy medications, propranolol nasal spray and meclizine. (6) Healthcare maintenance: Code(s): Z00.00 - Encounter for general adult medical examination without abnormal findings Category: Medical Plan: An influenza vaccine was administered during the visit. An RSV, COVID, pneumococcal vaccine was recommended. The patient prefers to follow up monthly but was advised she can follow up every three months if she prefers. Plan Plan Patient was informed and verbally consented to the use of an ambient scribe for clinic note documentation during this visit. 1. Essential Hypertension The patient's blood pressure was noted to be low at 109/58 mmHg during the visit. Given the low reading, which is likely secondary to her increased dose of furosemide, the amlodipine dose will be decreased from 10 mg to 5 mg daily. The patient was instructed to continue monitoring her blood pressure at home. 2. Peripheral Edema The patient's leg swelling has improved with an increased dose of furosemide 40 mg daily. Due to the higher diuretic dose, a chemistry panel including potassium, magnesium, and renal function will be checked, along with a urinalysis to assess for other causes of her increased urinary frequency. She will continue the current dose of furosemide 40 mg once daily. 3. Post-Polio Syndrome The patient's symptoms of muscle weakness, fatigue, and joint pain are consistent with post-polio syndrome, given her history of polio in 1956. Management strategies including physical therapy and use of assistive devices were discussed. 4. Arthritis The patient's back pain from arthritis is well-managed with tramadol 50 mg once daily. Refills will now be provided for a three-month supply, and she no longer needs to follow up monthly for this prescription. 5. Allergic Rhinitis The patient requested refills for her allergy medications, propranolol nasal spray and meclizine. 6. Health Maintenance An influenza vaccine was administered during the visit. An RSV vaccine was recommended. The patient prefers to follow up monthly but was advised she can follow up every three months if she prefers. I discussed with the patient her current low blood pressure reading of 109/58 mmHg. I explained that because her leg swelling is improving with the higher dose of furosemide, we should reduce her amlodipine dose from 10 mg to 5 mg to prevent her blood pressure from dropping too low. I advised her that we will order blood work today to check her potassium, magnesium, and kidney function due to the increased furosemide, and a urine test because she is urinating more frequently. We discussed her symptoms of fatigue, muscle and joint pain, and difficulty walking in the context of her prior polio infection, and I noted that these symptoms are consistent with post-polio syndrome. Regarding her tramadol prescription for arthritis, I informed her that she no longer needs to come in monthly for refills, and that we can provide a three-month supply. She was given a flu shot today, and I recommended she get the RSV vaccine. I let her know she has the option to follow up in one month or three months, as she prefers. Orders: Orders Magnesium Today Z00.00 - Encounter for general adult medical examination without abnormal findings UA CC w/rflx Micro + Cult Today Z00.00 - Encounter for general adult medical examination without abnormal findings Influenza [id number] Immunization Today Z23 - Encounter for immunization Comprehensive Met. Panel Today Z00.00 - Encounter for general adult medical examination without abnormal findings Medications: Refilled methylphenidate HCl Partial Fill upon patient request. 10 mg PO DAILY 30 tabs 0RF 30 days tramadol 50 mg PO DAILY PRN 30 tabs 0RF pain Patient Instructions: - Your amlodipine dose has been lowered to 5 mg once a day. - Continue taking furosemide (Lasix) 40 mg once a day for your leg swelling. - Please get your blood work and urine test done today. This is to make sure the Lasix is not affecting your kidneys or potassium levels. - Continue to check your blood pressure at home. - You received a flu shot today. We also recommend you get the RSV vaccine. - You may schedule your next visit in one month or three months, whichever you prefer. You do not need to come every month just for your pain medicine refill.
[2025-04-05 10:37] VITALS: BP 109/58; PULSE 88; RESP 14; TEMP 36.6; O2SAT 97; BMI 22.1
--- OUTSIDE RECORDS SUMMARY | 2025-04-05 12:19 | XMS_ITS | Patient Health Record ---
Author Organization [facility] [place] Address [address] [place] [address] Care Team Providers Care Marketing Editor Name Role Phone Nehemiah Whyte MD Primary Care Provider Unavailab Helena Bejarano Unavailable [phone] Ethan Medina Unavailable [phone] Allergies No Known Allergies Reason For Referral [...] atherosclerosis of arteries of lower limbs (disorder) ([id number] ) Atherosclerosis of [place] artery of both lower extremities, with unspecified presence of clinical manifestation (I70.203) Active confirmed Q7(A), Q8(2B), Q9(1B,2 C) Vital Signs Blood pressure diastolic 74 mm Hg 09/20/2024 Height 5 ft in 09/20/2024 Blood pressure systolic 132 mm Hg 09/20/2024 Weight 100 lbs 09/20/2024 BMI 19.53 kg/m2 09/20/2024 Procedures Procedure Date Ordered Date Performed Result Body Sit e 52716-MVQXMPL NAIL, 6 OR MORE 05/13/2024 N/A 69169-ETNF SKIN LESIONS, OVER 4 05/13/2024 N/A 87026-JJNERGE NAIL, 6 OR MORE 09/20/2024 N/A 43396-CJTX SKIN LESIONS, OVER 4 09/20/2024 N/A Encounters Encounter Location Date Provider Diagnosis [address] [address] 05/13/2024 Helena Tan Atherosclerosis of [place] artery of both lower extremities, with unspecified presence of clinical manifestation I70.203 ; Tinea unguium B35.1 ; Pain in right toe(s) M79.674 and Pain in left toe(s) M79.[address] [address] 09/20/2024 Helena Tan Atherosclerosis of [place] artery of both lower extremities, with unspecified presence of clinical manifestation I70.203 ; Tinea unguium B35.1 ; Pain in right toe(s) M79.674 and Pain in left toe(s) M79.[address] [address] 10/31/2024 Helena Tan [address] [address] 12/20/2024 Helena Tan [address] [address] 01/09/2025 Helena Tan Assessments Encounter Date Diagnosis (ICD Code) Assessment Notes Treatment Notes Treatment Clinical Notes Section Notes 05/13/2024 Atherosclerosis of [place] artery of both lower extremities, with unspecified presence of clinical manifestation (ICD-10 - I70.203) Q7(A), Q8(2B), Q9(1B,2C) 09/20/2024 Atherosclerosis of [place] artery of both lower extremities, with unspecified [...] Treatment Pending Test Test Name Order Date [id number] NAIL, 6 OR MORE 06/12/2015 80167-YZCKLQB NAIL, 6 OR MORE 05/13/2024 32130-OAEFICI NAIL, 6 OR MORE 09/20/2024 59808-PLLO SKIN LESIONS, OVER 4 09/21/19 25 40755-EGST SKIN LESIONS, OVER 4 05/13/20 24 72626-KQQR SKIN LESIONS, 2 TO 4 03/19/20 21 04194-WUMT SKIN LESIONS, 2 TO 4 06/18/19 22 Insurance Providers Payer Name Payer Address Payer Phone Subscriber Number Group Number Insured Name Patient Relationship to Insured Coverage Start Date Coverage End Date [employer] Medicare Adv-[id number] [address] [address] [place] [address] [id number] Sarah Yeung Self - patient is the insured Medical (General) History Medical History History ICD Code Osteoporosis Polio Back,Hip,and Knee pain Measles Mumps Chicken pox Surgical History Surgery Date(Month/Year) carpal tunnel surgery hip replacement tubal ligation appendectomy right knee replacement 01/15/2021
== END 2025-04-05 11:43 | disposition home or self-care (01) ==
LOC: HO.HMCSH 10:33
PROVIDERS: PCP Physician Assistant Medical; Visit Provider Physician Assistant Medical
DX: I10 Essential (primary) hypertension (principal); R60.9 Edema, unspecified; G14 Postpolio syndrome; M19.90 Unspecified osteoarthritis, unspecified site; J30.9 Allergic rhinitis, unspecified; Z00.00 Encounter for general adult medical examination without abnormal findings; Z23 Encounter for immunization

== ENCOUNTER 2025-04-05 10:33 | Outpatient (REF) | payer MEDICARE, SELFPAY ==
[2025-04-05 13:22] LABS: Appearance Urine Clear; Glucose Urine UA Negative (Negative); PH 6.5 (5.0-9.0); Specific Gravity - Urine <= 1.005 (1.005-1.025)
[2025-04-05 13:57] LABS: Alanine Aminotransferase 25 U/L (0-31); Albumin Level 4.6 g/dL (3.5-5.0); Alkaline Phosphatase 64 U/L (39-117); Anion Gap 14 (12-20); Aspartate Amino Transferase 32 U/L (5-31); Blood Urea Nitrogen 26 mg/dL (9-16); Calcium 10.3 mg/dL (8.4-10.2); Carbon Dioxide 25 mmol/L (22-29); Chloride 100 mmol/L (96-108); Estimated Glomerular Filt Rate > 60; Magnesium 2.1 mg/dL (1.6-2.6); Potassium 4.2 mmol/L (3.3-5.1); Sodium 135 mmol/L (135-145); Total Protein 7.3 g/dL (6.5-8.0)
== END 2025-04-05 10:34 | disposition home or self-care (01) ==
LOC: HO.HMGCLDS 10:33
PROVIDERS: PCP Physician Assistant Medical; Visit Provider Physician Assistant Medical
DX: Z00.00 Encounter for general adult medical examination without abnormal findings (principal); I10 Essential (primary) hypertension; R60.0 Localized edema; R60.9 Edema, unspecified; G14 Postpolio syndrome; M19.90 Unspecified osteoarthritis, unspecified site; J30.9 Allergic rhinitis, unspecified; Z23 Encounter for immunization; Z79.899 Other long term (current) drug therapy
CPT/HCPCS: 36415; 80053; 81003; 83735; 90471; 90656; 96127; 99212